=== PATIENT | male | born 1990 | race Caucasian/White ===

== ENCOUNTER 2016-12-04 06:09 | Inpatient (IN) | payer SELFPAY ==
[~2016-12-04] VITALS: Ht 180.3 cm; Wt 67.5 kg
[2016-12-04] VITALS (16 sets, daily range): BP systolic 97–157; BP diastolic 46–75; PULSE 43–93; RESP 16–20; TEMP 97.4–98.8; O2SAT 94–100
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
[2016-12-04] MEDS ORDERED: SODIUM CHLOR 0.9% 1000 ML INJ 1,000 ML IV ONE (06:30)
[2016-12-04 06:55] LABS: AUTOMATED NEUTROPHIL # 12.3 TH/MM3 (1.8-7.7); BASOPHIL # 0.1 TH/MM3 (0-0.2); BASOPHIL % 0.7 % (0.0-2.0); EOSINOPHIL # 0.2 TH/MM3 (0-0.4); EOSINOPHIL % 1.2 % (0.0-4.0); HEMATOCRIT 41.1 % (39.0-51.0); HEMO FLAGS DIFF FINAL; LYMPH % 11.9 % (9.0-44.0); LYMPHOCYTE # 1.8 TH/MM3 (1.0-4.8); MEAN CORPUSCULAR HEMOGLOBIN 32.5 PG (27.0-34.0); MEAN CORPUSCULAR HGB CONC 33.9 % (32.0-36.0); MONO % 5.6 % (0.0-8.0); NEUT % 80.6 % (16.0-70.0); PLATELET COUNT 239 TH/MM3 (150-450); RED BLOOD COUNT 4.28 MIL/MM3 (4.50-5.90); RED CELL DISTRIBUTION WIDTH 13.7 % (11.6-17.2); WHITE BLOOD COUNT 15.2 TH/MM3 (4.0-11.0)
[2016-12-04] MEDS ORDERED: ONDANSETRON HCL 4 MG/2 ML VIAL IV PUSH ONE ×2 (07:00→12:00)
[2016-12-04 07:05] LABS: AMPHETAMINE, URINE NEG (NEG); BARBITURATES, URINE NEG (NEG); COCAINE, URINE NEG (NEG)
[2016-12-04 07:36] LABS: BICARBONATE 25.2 MEQ/L (21.0-32.0)
[2016-12-04 07:37] LABS: POTASSIUM 4.5 MEQ/L (3.5-5.1)
--- NOTE | 2016-12-04 07:37 | PD ---
Physical Exam Date Seen by Provider: Dec 04, 2016 Narrative GENERAL: SKIN: Warm and dry. HEAD: left occipital hematoma, Normocephalic. EYES: Pupils equal and round. No scleral icterus. No injection or drainage. ENT: No nasal bleeding or discharge. Mucous membranes pink and moist. left eac has blood in canal unable to view tm. NECK: Trachea midline. No JVD. CARDIOVASCULAR: Regular rate and rhythm. RESPIRATORY: No accessory muscle use. Clear to auscultation. Breath sounds equal bilaterally. GASTROINTESTINAL: Abdomen soft, non-tender, nondistended. Hepatic and splenic margins not palpable. MUSCULOSKELETAL: Extremities without clubbing, cyanosis, or edema. No obvious deformities. NEUROLOGICAL: SOMNOLENT BUT AROUSABLE. No obvious cranial nerve deficits. Motor grossly within normal limits. NORMAL speech UNCOOPERATIVELY SAID "LEAVE ME ALONE, JUST WANT TO SLEEP". PSYCHIATRIC: UNABLE TO TEST Data Data Last Documented VS Vital Signs Date Time Temp Pulse Resp B/P Pulse Ox O2 Delivery O2 Flow Rate FiO2 12/04/16 07:46 98.3 52 20 157/70 100 Room Air Orders Complete Blood Count With Diff (12/04/16 06:14) Basic Metabolic Panel (Bmp) (12/04/16 06:14) Ct Brain W/O Iv Contrast(Rout) (12/04/16 06:14) Drug Screen, Random Urine (12/04/16 06:14) Alcohol (Ethanol) (12/04/16 06:14) Ct Cerv Spine W/O Contrast (12/04/16 06:14) Sodium Chlor 0.9% 1000 Ml Inj (Ns 1000 M (12/04/16 06:30) Restraints Non-Violent RADHA.Q3H (12/04/16 06:23) Ondansetron Inj (Zofran Inj) (12/04/16 07:00) Etomidate Inj (Amidate Inj) (12/04/16 08:00) Succinylcholine Inj (Quelicin Inj) (12/04/16 08:00) Ng Gastric Tube Insert/Monitor (12/04/16 07:57) Urinary Catheter Insert/Apply (12/04/16 07:57) Lidocaine 2% Inj (Xylocaine 2% Inj) (12/04/16 08:00) Labs Laboratory Tests Test 12/04/16 12/04/16 06:20 06:26 Urine Opiates Screen NEG Urine Barbiturates Screen NEG Urine Amphetamines Screen NEG Urine Benzodiazepines Screen NEG Urine Cocaine Screen NEG Urine Cannabinoids Screen NEG White Blood Count 15.2 TH/MM3 Red Blood Count 4.28 MIL/MM3 Hemoglobin 13.9 GM/DL Hematocrit 41.1 % Mean Corpuscular Volume 96.0 FL Mean Corpuscular Hemoglobin 32.5 PG Mean Corpuscular Hemoglobin 33.9 % Concent Red Cell Distribution Width 13.7 % Platelet Count 239 TH/MM3 Mean Platelet Volume 7.8 FL Neutrophils (%) (Auto) 80.6 % Lymphocytes (%) (Auto) 11.9 % Monocytes (%) (Auto) 5.6 % Eosinophils (%) (Auto) 1.2 % Basophils (%) (Auto) 0.7 % Neutrophils # (Auto) 12.3 TH/MM3 Lymphocytes # (Auto) 1.8 TH/MM3 Monocytes # (Auto) 0.9 TH/MM3 Eosinophils # (Auto) 0.2 TH/MM3 Basophils # (Auto) 0.1 TH/MM3 CBC Comment DIFF FINAL Differential Comment Sodium Level 137 MEQ/L Potassium Level 4.5 MEQ/L Chloride Level 105 MEQ/L Carbon Dioxide Level 25.2 MEQ/L Anion Gap 7 MEQ/L Blood Urea Nitrogen 10 MG/DL Creatinine 0.94 MG/DL Estimat Glomerular Filtration 97 ML/MIN Rate Random Glucose 139 MG/DL Calcium Level 8.2 MG/DL Ethyl Alcohol Level 9 MG/DL [facility] Medical Record Reviewed: Yes Supervised Visit with NGA: No Critical Care Narrative CRITICAL CARE NOTE: With evaluation of the patient, labs, EKG, receipt of radiologic studies, administration of medications, reevaluation the patient and discussion of the patient with the admitting physicians, the total critical care time was [45] minutes. Time to perform other separately billable procedures was not included in the critical care time. Physician Communication Physician Communication DISCUSSED CASE FULLY WITH DR QUINTANA (TEMPORAL FX WITH EPIDURAL BRAIN BLEED, WITH 5MM SHIFT)...CURRENTLY PATIENT IS GUARDING AIRWAY, BUT BEDSIDE PREPARATIONS HAVE BEEN MADE FOR INTUBATION.... OF 819 PATIENT'S VSS, RECALLED DR QUINTANA CURRENTLY AWAITING HIS BEDSIDE EVALUATION, CURRENTLY PUPILS ERRL, PATIENT BREATHING ON HIS OWN ACCORD, HANDLING HIS SECRETIONS. Diagnosis Primary Impression: AMS DUE TO ACUTE EPIDURAL HEMORRHAGE Additional Impression: LEFT TEMPORAL BONE FRACTURE Admitting Information Admitting Physician Requests: Admit Faustino Ramires MD Dec 04, 2016 07:37
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
[2016-12-04] MEDS ORDERED: ETOMIDATE 20 MG/10 ML VIAL IV PUSH ONE (08:00)
[2016-12-04] MEDS ORDERED: LIDOCAINE HCL 2% 100 MG/5 ML SYRINGE IVP ONE (08:00)
[2016-12-04] MEDS ORDERED: SUCCINYLCHOLINE CHLORIDE 200 MG/10 ML VIAL IV PUSH ONE (08:00)
[2016-12-04] MEDS ORDERED: THROMBIN (TOPICAL) 5,000 UNIT VIAL ONE (08:46)
[2016-12-04] MEDS ORDERED: ceFAZolin 2 GM PREMIX 50 ML ONE (08:46)
[2016-12-04] MEDS ORDERED: VANCOMYCIN HCL 1000 MG VIAL ONE (08:46)
[2016-12-04] MEDS ORDERED: BACITRACIN TOP OINT 15 GM TUBE ONE (08:47)
[2016-12-04] MEDS ORDERED: GENTAMICIN SULFATE 80 MG/2 ML VIAL ONE (08:47)
[2016-12-04] MEDS ORDERED: levETIRAcetam 500 MG/5 ML VIAL IV ONE ×2 (08:47→09:38)
[2016-12-04] MEDS ORDERED: FUROSEMIDE 40 MG/4 ML VIAL ONE (08:47)
[2016-12-04] MEDS ORDERED: MANNITOL INJ 50 ML ONE (08:48)
[2016-12-04] MEDS ORDERED: GELFOAM SIZE 100 ONE (08:48)
[2016-12-04] MEDS ORDERED: LIDOCAINE 1%/EPINEPHrine 1:100,000 SOLN 20 ML VIAL ONE ×2 (08:48)
[2016-12-04] MEDS ORDERED: SODIUM CHLOR 0.9% 1000 ML INJ 1,000 ML IV SCH (08:58)
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
[2016-12-04] MEDS ORDERED: MISCELLANEOUS NURSING INFORMATION XX SCH (09:00)
[2016-12-04] MEDS ORDERED: CHLORHEXIDINE GLUCONATE 2 % 1 PACK (2 CLOTHS) TOP PRN (09:00)
[2016-12-04] MEDS ORDERED: DOCUSATE SODIUM 50 MG/SENNA 8.6 MG TAB PO SCH (09:00)
[2016-12-04] MEDS ORDERED: MAGNESIUM HYDROXIDE SUSP 30 ML CUP PO PRN (09:00)
[2016-12-04] MEDS ORDERED: BISACODYL 10 MG SUPP RECTAL PRN ×2 (09:00→10:45)
[2016-12-04] MEDS ORDERED: fentaNYL CITRATE 250 MCG/5 ML AMP ONE (09:06)
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
[2016-12-04] MEDS: PANTOPRAZOLE SODIUM 40 MG VIAL IV SCH (10:00)
[2016-12-04] MEDS ORDERED: MAGNESIUM SULFATE INJ 4 GM in SODIUM CHLORIDE 0.9% INJ 100 ML IV PRN (10:45)
[2016-12-04] MEDS ORDERED: ONDANSETRON HCL 4 MG/2 ML VIAL IV PRN (10:45)
[2016-12-04] MEDS ORDERED: DO NOT ADM ANY ANTICOAGULANT DRUGS PRN (10:45)
[2016-12-04] MEDS ORDERED: ACETAMINOPHEN 325 MG TAB PO PRN (10:45)
[2016-12-04] MEDS ORDERED: CALCIUM GLUCONATE 10% 1 GM/10 ML VIAL IV PRN (10:45)
[2016-12-04] MEDS ORDERED: MORPHINE SULFATE 4 MG/ML INJ IV PUSH PRN ×2 (10:45)
[2016-12-04] MEDS ORDERED: POTASSIUM CHLOR 20 MEQ PREMIX 100 ML IV PRN (10:45)
[2016-12-04] MEDS ORDERED: ACETAMINOPHEN/HYDROcodone 325 MG/10 MG TAB PO PRN ×2 (10:45)
[2016-12-04] MEDS ORDERED: SODIUM CHLORIDE 0.9% FLUSH 5 ML FLUSH IVF PRN (10:45)
--- NOTE | 2016-12-04 10:54 | PD.OP ---
Operative Report Date of Surgery: Dec 04, 2016 Preoperative Diagnosis: traumatic brain injury, epidural hematoma Postoperative Diagnosis: traumatic brain injury, epidural hematoma Procedure: Left temporal parietal craniotomy, evacuation of epidural hematoma Anesthesia: general Surgeon: Gagandeep Yu Sales Account Specialist(s): crispin angela Operation and Findings: DETAILS OF THE SURGICAL PROCEDURE After the inducation of general anesthesia, the patient was endotracheally intubated and mechanically ventilated. A Sales catheter, bilateral DONNA hose and sequential compression devices were placed and kept throughout the procedure. The patient was positioned supine on a 3080 table over a soft mattress. The head was placed on a gel doughnut. All pressure points were carefully padded with egg crate mattress. The eyes were tapped shut after ointment was applied by the anesthesiologist to prevent corneal abrasion. A Leah hugger was placed over the exposed lower body to maintain control of the core body temperature. The left frontotemporal parietal area was shaved, prepped and draped in the usual sterile fashion. A standard inverted question yessica incision was outlined on the left scalp and infiltrated with 1% lidocaine with epinephrine. The skin incision was made with a #10 blade down to the level of the periosteum in the left frontoparietal region and to the temporalis fascia in the temporal region. Franklyn clips were applied to the scalp. Using a Bovie, the temporalis fascia and muscle were incised and a subperiosteal dissection was performed reflecting the scalp flap anteriorly. The scalp was covered with a moist sponge and held in position using fish hooks. The Midas Artis was brought to the field and a bur hole was made in the temporal region using the craniotome attachment. Then, using the footplate attachment, a temporoparietal craniotomy flap was elevated. Upon elevation of the craniotomy flap, a large epidural hematoma was found. The hematoma was evacuated by gentle irrigation and suction, and sent to the lab for histological analysis. The bleeding was controlled using the bipolar psych specialist. Then the incision was irrigated with saline solution. The dural edges were tacked to the bone. The craniotomy flap was then repositioned and secured in place using Striker plates and screws. A 7 millimeter Matthew-Huerta drain was then left in the epidural and subgaleal space and externalized through a separate stab incision. The incision was then closed in layers. 0 Vicryl in interrupted sutures were used to close the temporalis fascia. The galea was closed with interrupted 3- 0 Vicryl. [place] were applied to the skin. The drain was secured with a 3-0 nylon. At the end of the procedure, the sponge, needle and instrument counts were all correct. Estimated blood loss was less than 120-130 cc. No blood transfusion was given. No intraoperative complications occurred. The patient received prophylactic antibiotics. The patient was then transferred to the recovery room in stable condition. Gagandeep Yu MD Dec 04, 2016 10:54
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
[2016-12-04 11:21] LABS: BLOOD GAS BASE EXCESS -2.8 mmol/L (-2-2); BLOOD GAS CARBOXYHEMOGLOBIN 2.4 % (0-4); BLOOD GAS HCO3 22 mmol/L (22-26); BLOOD GAS METHEMOGLOBIN 1.4 % (0-2); BLOOD GAS O2 HGB SATURATION 96 % (90-100); BLOOD GAS OXYGEN CONTENT 17.2 Vol % (12.0-20.0); BLOOD GAS PCO2 38 mmHg (38-42); BLOOD GAS PO2 275 mmHg (61-120); BLOOD GAS TOTAL HGB 12.3 G/DL (12.0-16.0); CRITICAL VALUE NO; DRAW SITE ART LINE; FIO2 50 %; OXYGEN DEVICE VENTILATOR; STAT YES; TEMP CORR TO 98.6; ULNAR PULSE PRESENT; VENT SETTINGS AC/18/550/PEEP5
[2016-12-04] MEDS ORDERED: 3% SALINE INJ 500 ML IV ONE (11:30)
--- NOTE | 2016-12-04 11:30 | RADRPT ---
EXAM DATE/TIME: 12/04/2016 11:16 [facility] COMPARISON: No previous studies available for comparison. INDICATIONS : Endotracheal tube placement. MEDICAL HISTORY : None. SURGICAL HISTORY : None. ENCOUNTER: Initial ACUITY: 1 day PAIN SCORE: Non-responsive. LOCATION: chest FINDINGS: A single view of the chest demonstrates the lungs to be symmetrically aerated without evidence of mas s, infiltrate or effusion. ETT in good position. The cardiomediastinal contours are unremarkable. Osseous structures are intact. CONCLUSION: ETT in good position. Lungs are clear. Walter Barrios MD FACR on December 04, 2016 at 11:28 Board Certified Radiologist. This report was verified electronically.
[2016-12-04] MEDS ORDERED: MORPHINE SULFATE 8 MG/ML INJ ONE (11:38)
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
--- NOTE | 2016-12-04 11:52 | RADRPT ---
EXAM DATE/TIME: 12/04/2016 11:42 [facility] COMPARISON: CT BRAIN W/O CONTRAST, December 04, 2016, 7:23. INDICATIONS : Status post craniotomy. RADIATION DOSE: 54.76 CTDIvol (mGy) MEDICAL HISTORY : None SURGICAL HISTORY : Craniotomy. ENCOUNTER: Initial ACUITY: 1 day PAIN SCALE: Non-responsive LOCATION: cranial TECHNIQUE: Multiple contiguous axial images were obtained of the head. Using automated exposure control and adj ustment of the mA and/or kV according to patient size, radiation dose was kept as low as reasonably a chievable to obtain optimal diagnostic quality images. DICOM format image data is available electro nically for review and comparison. FINDINGS: CEREBRUM: Patient status post drainage of epidural hematoma with good resolution. Minimal cortical hemorrhage is seen on the opposite side. Minimal pneumocephalus is evident. POSTERIOR FOSSA: The cerebellum and brainstem are intact. The 4th ventricle is midline. The cerebellopontine angle i s unremarkable. EXTRACRANIAL: The visualized portion of the orbits is intact. SKULL: Postsurgical changes are evident. CONCLUSION: Significant improvement following evacuation left subdural hematoma. Walter Barrios MD FACR on December 04, 2016 at 11:48 Board Certified Radiologist. This report was verified electronically.
[2016-12-04] MEDS ORDERED: LACTATED RINGER'S 1000 ML INJ 1,000 ML IV ONE (12:00)
[2016-12-04] MEDS ORDERED: PHENYLEPH/NS 1000 MCG/10 ML SYR IV ONE (12:00)
[2016-12-04] MEDS ORDERED: PROPOFOL 200 MG/20 ML AMP IV ONE (12:00)
[2016-12-04] MEDS ORDERED: SODIUM CHLORID 0.9% 500 ML INJ 500 ML IV ONE (12:00)
[2016-12-04] MEDS ORDERED: SODIUM CHLOR 0.9% 250 ML INJ 250 ML IV ONE (12:00)
[2016-12-04] MEDS ORDERED: ePHEDrine/NS 25 MG/5 ML SYR IV ONE (12:00)
[2016-12-04] MEDS ORDERED: NORMOSOL R INJ 1,000 ML IV ONE (12:00)
[2016-12-04] MEDS: fentaNYL DRIP 250 ML IV SCH ×2 (12:11→22:38)
[2016-12-04] MEDS: PROPOFOL 1000 MG/100 ML INJ 100 ML IV SCH ×3 (12:11→22:38)
[2016-12-04] MEDS: levETIRAcetam INJ 500 MG in SODIUM CHLORIDE 0.9% INJ 100 ML IV SCH (12:12)
[2016-12-04] MEDS ORDERED: SODIUM CHLORID 0.9% IV ONE (12:12)
[2016-12-04] MEDS ORDERED: SODIUM CHLORIDE IV ONE (12:12)
[2016-12-04] MEDS ORDERED: SODIUM CHLORIDE 23.4% INJ 188 MEQ in SODIUM CHLOR 0.9% 1000 ML INJ 1,000 ML IV SCH (12:30)
[2016-12-04] MEDS: ceFAZolin 2 GM PREMIX 50 ML IV SCH (16:17)
--- NOTE | 2016-12-04 16:36 | OTSOAPIP ---
PATIENT STATUS POST SURGERY RN REQUESTED TO WAIT UNTIL TOMORROW. Therapist: Alison Dillon OTR/L Signature on file
[2016-12-04] MEDS: NS + KCL 20 MEQ INJ 1,000 ML IV SCH (19:02)
[2016-12-04] MEDS ORDERED: NOREPINEPHRINE-DEXTROSE DRIP 250 ML IV SCH (19:45)
[2016-12-04] MEDS ORDERED: TERBUTALINE INJ 1 MG/ML AMP SQ PRN (19:45)
[2016-12-04] MEDS ORDERED: MIDAZOLAM HCL 2 MG/2 ML VIAL IV ONE (19:45)
[2016-12-04] MEDS: MIDAZOLAM 100 MG/ML INJ 100 ML IV SCH (19:51)
[2016-12-04] MEDS ORDERED: NOREPINEPHRINE 4 MG/4 ML AMP ONE (19:59)
[2016-12-04] MEDS ORDERED: ROCURONIUM INJ 50 MG/5 ML VIAL IV ONE (20:00)
--- NOTE | 2016-12-04 20:28 | PD.PROCEDR ---
Central Line Procedure REASON FOR PROCEDURE Central venous access PROCEDURE PERFORMED Central line placement:LIJ CONSENT Informed consent for procedure was obtained and time out performed. The risks and benefits of the procedure were discussed to include but limited to bleeding , clot formation, infection, and even . ANESTHESIA Local injection of 1% Lidocaine DESCRIPTION OF THE PROCEDURE The patient was placed in supine, mild Trendelenburg position. The area was exposed and cleansed with ChloraPrep, times two. Large sterile drape was used to cover the patient, with the site exposed, under sterile conditions including cap, face mask, sterile gown, and sterile gloves. On single attempt, the introducer needle was inserted with negative pressure in syringe and venous flash was obtained. The guide wire was then advanced without any restriction and the needle was removed. The dilator was used without any complications. Using Seldinger technique the triple lumen abx coated catheter was advanced over the guide wire to a depth of 18 centimeters. The guide wire was removed. All ports were aspirated with dark venous blood return and flushed easily with sterile saline. All ports were capped. Antibiotic disc was placed around central line at puncture site. The central line was secured to the skin with two interrupted 2.0 silk sutures. The area was bandaged with sterile see- through central line bandage. RADIOLOGICAL DATA Ultrasound guidance was used to locate LIJ COMPLICATIONS: No apparent complications ESTIMATED BLOOD LOSS: Less than 1 cc. Kaleb Bello MD Dec 04, 2016 20:28
[2016-12-04] MEDS ORDERED: NOREPINEPHRINE INJ 4 MG in SODIUM CHLOR 0.9% 250 ML INJ 250 ML IV SCH (20:45)
--- NOTE | 2016-12-04 20:53 | RADRPT ---
EXAM DATE/TIME: 12/04/2016 20:31 [facility] COMPARISON: CHEST SINGLE AP, December 04, 2016, 11:16. INDICATIONS : Central line placement, evaluate for pneumothorax MEDICAL HISTORY : None. SURGICAL HISTORY : None. ENCOUNTER: Initial ACUITY: 1 day PAIN SCORE: Non-responsive. LOCATION: Bilateral chest FINDINGS: Interval placement of left internal jugular catheter. There is absent lung markings at the left uppe r lung. No definite pleural reflection seen; the area devoid of lung markings measures approximately 3 cm. Lung markings were seen in the left upper lung on a chest x-ray performed earlier today. ET tube in good position. Gastric tube side port is projected in the stomach. No infiltrates in the alicia ngs. CONCLUSION: Interval placement of left internal jugular catheter with findings suggesting a moderate size left pn eumothorax, but no definitive pleural reflection is seen. The case was discussed with Dr. Bello and a CT thorax will be performed for further evaluation. Pasha Byrd MD on December 04, 2016 at 20:45 Board Certified Radiologist. This report was verified electronically.
--- NOTE | 2016-12-04 21:36 | RADRPT ---
EXAM DATE/TIME: 12/04/2016 21:22 [facility] COMPARISON: No previous studies available for comparison. INDICATIONS : Attempted subclavian line; rule out pneumothorax. RADIATION DOSE: 6.94 CTDIvol (mGy) MEDICAL HISTORY : Non-responsive. SURGICAL HISTORY : Non-responsive. ENCOUNTER: Initial ACUITY: 1 day PAIN SCALE: Non-responsive LOCATION: chest TECHNIQUE: Volumetric scanning of the chest was performed. Using automated exposure control and adjustment of t he mA and/or kV according to patient size, radiation dose was kept as low as reasonably achievable to obtain optimal diagnostic quality images. DICOM format image data is available electronically for r eview and comparison. Follow-up recommendations for incidentally detected pulmonary nodules are based at a minimum on nodul e size and patient risk factors according to Fleischner Society Guidelines. FINDINGS: The examination was performed to evaluate for pneumothorax on the left side. The examination is abno rmal demonstrating a large pneumothorax which extends about the entire left lung. Anteriorly, the pn eumothorax measures in excess of 8 cm in AP dimension. There is mild mediastinal shift towards the r ight. The lungs are clear. Gastric tube tip projects in the stomach. Left subclavian catheter tip at the caval atrial junction. Endotracheal tube in good position. Osseous structures are intact. CONCLUSION: Greater than a centimeter left pneumothorax. There is some evidence of tension with flattening of th e left hemidiaphragm and speed use, shift towards the right. The results were called to Dr. Manuel. Pasha Byrd MD on December 04, 2016 at 21:32 Board Certified Radiologist. This report was verified electronically.
--- NOTE | 2016-12-04 22:10 | PD.PROCEDR ---
Procedure Note Procedure Procedure Procedure: Left pigtail chest tube placement Indication: Moderate Left pneumothorax A time-out was completed verifying correct patient, procedure, site, positioning. The patient's Left upper chest was prepped and draped in a sterile manner. 1% lidocaine was used anesthetize the surrounding skin. A 10-blade scalpel used to make the incision at third intercostal space, mid clavicular line. 18G needle was then introduced without difficulty and into the pleural space and air was withdrawn. Guidewire was placed through the needle and the needle was removed. A 7 Tajik dilator was used, followed by placement of 10 Tajik pigtail catheter over the guidewire using Seldinger technique. Guidewire was removed and pigtail was connected to the Vacutainer. A post- procedure chest x-ray pending at this time Estimated Blood Loss: <1 ml. The patient tolerated the procedure well and there were no immediate complications. Kaleb Bello MD Dec 04, 2016 22:10
--- NOTE | 2016-12-04 22:39 | RADRPT ---
EXAM DATE/TIME: 12/04/2016 22:27 [facility] COMPARISON: CHEST SINGLE AP, December 04, 2016, 20:31. INDICATIONS : Chest tube placement MEDICAL HISTORY : None. SURGICAL HISTORY : None. ENCOUNTER: Initial ACUITY: 1 day PAIN SCORE: Non-responsive. LOCATION: Bilateral chest FINDINGS: Interval placement of left chest catheter with the distal coiled at the upper left chest. There is p artial reexpansion of the left chest with residual 4 mm apical pneumothorax. Endotracheal tube in go od position. Gastric tube is in the stomach. Left internal jugular catheter at the cavoatrial junct ion. The heart is normal size. The lungs are clear. No evidence of mediastinal shift.. CONCLUSION: Interval placement of left chest pigtail catheter with reduction in size of pneumothorax to 4 mm. Pasha Byrd MD on December 04, 2016 at 22:36 Board Certified Radiologist. This report was verified electronically.
[2016-12-05] VITALS (21 sets, daily range): BP systolic 113–132; BP diastolic 47–68; PULSE 63–90; RESP 18–19; TEMP 98–98.8; O2SAT 95–100
[2016-12-05] MEDS: CHLORHEXIDINE 0.12% (ORAL KIT) 15 ML CUP MT SCH ×3 (00:46→20:00)
[2016-12-05] MEDS: NS + KCL 20 MEQ INJ 1,000 ML IV SCH ×3 (00:48→15:33)
[2016-12-05] MEDS: SODIUM CHLORIDE 0.9% FLUSH 5 ML FLUSH IVF SCH ×3 (00:49→21:00)
[2016-12-05] MEDS: DOCUSATE SODIUM 100 MG CAP PO SCH ×3 (00:50→21:13)
[2016-12-05] MEDS: ceFAZolin 2 GM PREMIX 50 ML IV SCH ×2 (00:53→09:55)
[2016-12-05] MEDS: levETIRAcetam INJ 500 MG in SODIUM CHLORIDE 0.9% INJ 100 ML IV SCH ×2 (01:54→13:03)
[2016-12-05 03:54] LABS: BLOOD GAS CARBOXYHEMOGLOBIN 0.9 % (0-4); BLOOD GAS HCO3 24 mmol/L (22-26); BLOOD GAS METHEMOGLOBIN 1.2 % (0-2); BLOOD GAS O2 HGB SATURATION 97 % (90-100); BLOOD GAS OXYGEN CONTENT 14.3 Vol % (12.0-20.0); BLOOD GAS PCO2 42 mmHg (38-42); BLOOD GAS PO2 246 mmHg (61-120); CRITICAL VALUE NO; OXYGEN DEVICE VENTILATOR; TEMP CORR TO 98.6
[2016-12-05 03:55] LABS: DRAW SITE ART LINE; FIO2 50 %; STAT NO
[2016-12-05 04:22] LABS: AUTOMATED NEUTROPHIL # 16.6 TH/MM3 (1.8-7.7); BASOPHIL # 0.1 TH/MM3 (0-0.2); BASOPHIL % 0.4 % (0.0-2.0); EOSINOPHIL % 0.1 % (0.0-4.0); HEMATOCRIT 30.5 % (39.0-51.0); HEMO FLAGS DIFF FINAL; LYMPH % 5.1 % (9.0-44.0); MEAN CELL VOLUME 95.1 FL (80.0-100.0); MEAN CORPUSCULAR HEMOGLOBIN 31.3 PG (27.0-34.0); MEAN CORPUSCULAR HGB CONC 32.9 % (32.0-36.0); MONO % 7.9 % (0.0-8.0); NEUT % 86.5 % (16.0-70.0); PLATELET COUNT 212 TH/MM3 (150-450); RED BLOOD COUNT 3.21 MIL/MM3 (4.50-5.90); RED CELL DISTRIBUTION WIDTH 13.9 % (11.6-17.2); WHITE BLOOD COUNT 19.2 TH/MM3 (4.0-11.0)
[2016-12-05] MEDS: PROPOFOL 1000 MG/100 ML INJ 100 ML IV SCH (04:36)
[2016-12-05] MEDS: MIDAZOLAM 100 MG/ML INJ 100 ML IV SCH (04:36)
[2016-12-05] MEDS: CHLORHEXIDINE GLUCONATE 2 % 1 PACK (2 CLOTHS) TOP SCH (04:36)
[2016-12-05 04:42] LABS: BICARBONATE 27.4 MEQ/L (21.0-32.0); POTASSIUM 4.2 MEQ/L (3.5-5.1)
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
[2016-12-05] MEDS: PIPERACIL-TAZO 4.5 GM PREMIX 100 ML IV SCH ×2 (04:55→10:59)
--- NOTE | 2016-12-05 05:53 | RADRPT ---
EXAM DATE/TIME: 12/05/2016 04:03 [facility] COMPARISON: CHEST SINGLE AP, December 04, 2016, 22:27. INDICATIONS : Respiratory disease. MEDICAL HISTORY : None. SURGICAL HISTORY : None. ENCOUNTER: Subsequent ACUITY: 2 days PAIN SCORE: Non-responsive. LOCATION: Bilateral chest FINDINGS: The cardiac silhouette is normal in transverse diameter. The lungs are free of acute parenchymal opac ity. No effusions are identified. A stable small left pneumothorax is present with a left chest tube in place. Support lines and tubes are in satisfactory position. CONCLUSION: 1. Stable small left apical pneumothorax without tension Garrett Capone MD on December 05, 2016 at 5:50 Board Certified Radiologist. This report was verified electronically.
[2016-12-05] MEDS: PANTOPRAZOLE SOD 40 MG DELAYED RELEASE TAB PO SCH (08:14)
[2016-12-05] MEDS ORDERED: PANTOPRAZOLE SODIUM 40 MG VIAL IVP SCH (09:00)
[2016-12-05] MEDS: PANTOPRAZOLE SODIUM 40 MG VIAL IV SCH (09:55)
--- NOTE | 2016-12-05 12:24 | HHI.NSPN ---
(Tara De La Rosa) Note Status Status: Progress Note (Tara De La Rosa) Interval History Interval History 12/05: POD 1 s/p craniotomy for evacuation of epidural hematoma, placement of ICP monitor. Currently sedated, becomes agitated off sedation. ICPs currently low. (Tara De La Rosa) Labs, Micro, & Vital Signs Results Date Time Temp Pulse Resp B/P Pulse Ox O2 Delivery O2 Flow Rate FiO2 12/05/16 11:30 100 30 12/05/16 10:00 71 12/05/16 08:00 40 12/05/16 08:00 73 12/05/16 08:00 98.0 72 18 129/56 100 Automatic Cuff 12/05/16 07:38 100 40 12/05/16 07:00 100 Mechanical Ventilator 40 12/05/16 06:00 86 12/05/16 04:23 100 50 12/05/16 04:00 98.4 79 18 118/56 100 12/05/16 04:00 40 12/05/16 04:00 86 12/05/16 03:17 100 50 12/05/16 02:00 86 12/05/16 00:18 100 40 12/05/16 00:00 81 12/05/16 00:00 40 12/05/16 00:00 98.3 81 18 131/60 100 12/04/16 22:00 93 12/04/16 21:48 100 40 12/04/16 21:00 100 100 12/04/16 20:00 40 12/04/16 20:00 87 12/04/16 20:00 98.8 87 18 97/46 100 12/04/16 19:00 100 Mechanical Ventilator 40 12/04/16 18:00 77 12/04/16 16:00 97.7 62 18 97/54 100 12/04/16 16:00 40 12/04/16 16:00 62 12/04/16 15:18 99 40 12/04/16 14:00 68 12/04/16 12:19 94 35 12/05/16 07:00 Intake Total 4899 ml Output Total 3592 ml Balance 1307 ml Constitutional Vital Signs Date Time Temp Pulse Resp B/P Pulse Ox O2 Delivery O2 Flow Rate FiO2 12/05/16 11:30 100 30 12/05/16 10:00 71 12/05/16 08:00 40 12/05/16 08:00 73 12/05/16 08:00 98.0 72 18 129/56 100 Automatic Cuff 12/05/16 07:38 100 40 12/05/16 07:00 100 Mechanical Ventilator 40 12/05/16 06:00 86 12/05/16 04:23 100 50 12/05/16 04:00 98.4 79 18 118/56 100 12/05/16 04:00 40 12/05/16 04:00 86 12/05/16 03:17 100 50 12/05/16 02:00 86 12/05/16 00:18 100 40 12/05/16 00:00 81 12/05/16 00:00 40 12/05/16 00:00 98.3 81 18 131/60 100 12/04/16 22:00 93 12/04/16 21:48 100 40 12/04/16 21:00 100 100 12/04/16 20:00 40 12/04/16 20:00 87 12/04/16 20:00 98.8 87 18 97/46 100 12/04/16 19:00 100 Mechanical Ventilator 40 12/04/16 18:00 77 12/04/16 16:00 97.7 62 18 97/54 100 12/04/16 16:00 40 12/04/16 16:00 62 12/04/16 15:18 99 40 12/04/16 14:00 68 12/04/16 12:19 94 35 12/05/16 07:00 Intake Total 4899 ml Output Total 3592 ml Balance 1307 ml (Tara De La Rosa) Review of Systems/Exam Exam patient is currently intubated and sedated. nursing reports off sedation opens eyes, moves all four extremities intermittently. ICP monitor in place, = 3. Surgical wound with clean dry dressing in place. JAMARCUS drains x [address] with minimal serosanguineous drainage. Cranial nerve examination: pupils to be equal, round and reactive to light. Motor: not following for testing, reports to move x 4 spontaneously off sedation (Tara De La Rosa) Medications Current Medications Current Medications Medications (Trade) Dose Ordered Sig/Torie Route PRN Reason Start Time Stop Time Status Last Admin Dose Admin Pantoprazole Sodium (Protonix Inj) 40 mg DAILY IV 12/04/16 10:00 12/05/16 09:55 Ondansetron HCl (Zofran Inj) 4 mg Q6H PRN IV NAUSEA OR VOMITING 12/04/16 09:00 Miscellaneous Information 1 Q361D XX 12/04/16 09:00 12/05/16 00:44 Chlorhexidine Gluconate (Chlorhexidine 2% Cloth) 3 pack Taper DAILY@04 TOP 12/05/16 04:00 12/01/17 03:59 12/05/16 04:36 Chlorhexidine Gluconate (Chlorhexidine 2% Cloth) 3 pack UNSCH PRN TOP HYGIENIC CARE 12/04/16 09:00 Magnesium Hydroxide 30 ml 30 ml Q12H PRN PO MILD - MODERATE CONSTIPATION 12/04/16 09:00 Potassium Chloride/Sodium Chloride (NS + KCl 20 Meq Inj) 1,000 ml @ 100 mls/hr Q10H IV 12/04/16 10:43 12/05/16 00:48 IV Flush (NS Flush) 2 ml UNSCH PRN IVF FLUSH AFTER USING IV ACCESS 12/04/16 10:45 IV Flush 2 ml 2 ml BID IVF 12/04/16 21:00 12/05/16 09:00 Levetriacetam/ Sodium Chloride (Keppra Inj/NS Inj) 105 ml @ 400 mls/hr Q12H IV 12/04/16 13:00 12/05/16 01:54 Bisacodyl (Dulcolax Supp) 10 mg DAILY PRN RECTAL CONSTIPATION 12/04/16 10:45 Docusate Sodium (Colace) 100 mg BID PO 12/04/16 21:00 12/05/16 09:55 Pantoprazole Sodium (Protonix) 40 mg DAILY PO 12/05/16 09:00 Calcium Gluconate 1 gm 1 gm UNSCH PRN IV SEE LABEL COMMENTS 12/04/16 10:45 Potassium Chloride 100 ml @ 50 mls/hr UNSCH PRN IV POTASSIUM LESS THAN 4 12/04/16 10:45 Magnesium Sulfate/ Sodium Chloride (Magnesium Sulfate Inj/NS Inj) 108 ml @ 108 mls/hr UNSCH PRN IV MAGNESIUM LESS THAN 2 12/04/16 10:45 Acetaminophen/ Hydrocodone Bitart ([place] 10-325 Mg) 1 tab Q4H PRN PO PAIN SCALE 1 TO 5 12/04/16 10:45 Acetaminophen/ Hydrocodone Bitart ([place] 10-325 Mg) 2 tab Q4H PRN PO PAIN SCALE 6 TO 10 12/04/16 10:45 Morphine Sulfate (Morphine Inj) 2 mg Q2H PRN IV PUSH PAIN SCALE 1 TO 6 12/04/16 10:45 Morphine Sulfate (Morphine Inj) 4 mg Q2H PRN IV PUSH PAIN SCALE 7 TO 10 12/04/16 10:45 Acetaminophen (Tylenol) 650 mg Q4H PRN PO TEMPERATURE > 101.5 F 12/04/16 10:45 Chlorhexidine Gluconate 15 ml 15 ml BID@08,20 MT 12/04/16 20:00 12/05/16 08:00 Propofol (Diprivan 1000 Mg/100ml Inj) 100 ml @ 0 mls/hr TITRATE IV 12/04/16 11:30 12/05/16 04:36 Fentanyl Citrate 100 mcg 100 mcg Q1H PRN SLOW IVP ICP > 20 12/04/16 11:30 Fentanyl Citrate 250 ml @ 0 mls/hr TITRATE IV 12/04/16 11:30 12/04/16 22:38 Sodium Chloride 187 meq/Sodium Chloride 500 ml @ 20 mls/hr ONCE ONCE IV 12/04/16 12:12 12/05/16 13:14 Sodium Chloride 188 meq/Sodium Chloride 1,047 ml @ 30 mls/hr Q24H IV 12/04/16 12:30 12/04/16 14:23 Midazolam HCl (Versed 100 Mg/ ml Inj) 100 ml @ 0 mls/hr TITRATE IV 12/04/16 19:45 12/05/16 04:36 Terbutaline Sulfate 1 mg 1 mg UNSCH PRN SQ For Extravasation 12/04/16 19:45 Norepinephrine Bitartrate 4 mg/ Sodium Chloride 254 ml @ 0 mls/hr TITRATE IV 12/04/16 20:45 Piperacillin Sod/ Tazobactam Sod (Zosyn 4.5 Gm Premix) 100 ml @ 200 mls/hr Q6H IV 12/05/16 05:00 12/05/16 10:59 (Tara De La Rosa) Medical Decision Making MDM Remarks 26 y/o male s/p craniotomy for evacuation of epidural hematoma, placement of ICP monitor 12/04/16, ICP monitor dc'ed 12/05 (Tara De La Rosa) Plan Plan Remarks started weaning off sedated, also wean vent to extubated as tolerated cont neuro checks cont nonchemical dvt prophylaxis (Tara De La Rosa) Attending Statement The exam, history, and the medical decision-making described in the above note were completed with the assistance of the mid-level provider. I reviewed and agree with the findings presented. I attest that I had a [id number] encounter with the patient on the same day, and personally performed and documented my assessment and findings in the medical record. (Gagandeep Yu MD) Tara De La Rosa Dec 05, 2016 12:24 Gagandeep Yu MD Dec 08, 2016 18:57
--- NOTE | 2016-12-05 12:56 | HHI.CCPN ---
Subjective Brief History EDH with shift-presented with [facility] OR for evacuation -POD#1 24 Hour Review/Hospital Course 12/05 -Agitated overnight sedated with propofol/fentanyl icp/cpp in good level-low dose levophed moving all 4 extremities-not purposeful yet Objective Vital Signs Date Time Temp Pulse Resp B/P Pulse Ox O2 Delivery O2 Flow Rate FiO2 12/05/16 11:30 100 30 12/05/16 10:00 71 12/05/16 08:00 98.0 18 129/56 Automatic Cuff 12/05/16 07:00 Mechanical Ventilator Intake and Output 12/04/16 12/04/16 12/04/16 07:59 15:59 23:59 Intake Total 2755 ml 1069 ml Output Total 2000 ml 410 ml Balance 755 ml 659 ml Result Diagram: 12/05/16 0400 12/05/16 0400 Other Results Laboratory Tests Test 12/05/16 03:35 Blood Gas Puncture Site ART LINE Blood Gas Patient Temperature 98.6 Blood Gas HCO3 24 mmol/L (22-26) Blood Gas Base Excess 0.0 mmol/L (-2-2) Blood Gas Oxygen Saturation 97 % (90-100) Arterial Blood pH 7.39 (7.380-7.420) Arterial Blood Partial 42 mmHg (38-42) Pressure CO2 Arterial Blood Partial 246 mmHg Pressure O2 (61-120) Arterial Blood Oxygen Content 14.3 Vol % (12.0-20.0) Arterial Blood 0.9 % (0-4) Carboxyhemoglobin Arterial Blood Methemoglobin 1.2 % (0-2) Blood Gas Hemoglobin 10.0 G/DL (12.0-16.0) Oxygen Delivery Device VENTILATOR Blood Gas Ventilator Setting COMMENT Blood Gas Inspired Oxygen 50 % Imaging Last 24 hours Impressions Chest X-Ray 12/05/16 0500 Signed Impressions: Service Date/Time: Monday, December 05, 2016 04:03 - CONCLUSION: 1. Stable small left apical pneumothorax without tension Garrett Capone MD Exam [employer] [facility] Hemodynamic/Cardiac levophed Pulmonary/Respiratory clear B/L Abdomen/GI Nutrition soft Renal/I&O adequat Urinary Catheter Assessment Urinary Catheter: Yes Sales insert reason: Measure Accurate Output Vascular Central Line Catheter Vascular Central Line Catheter: Yes Assessment and Plan Plan SBT/SBA consider precedex for wean keep CPP >60 mmHg achieve euvolemia to wean off levophed continue neuro protection keppra seizure prophylaxis start trophic tube feeds single system trauma-hold chemical prophylaxis until stable CT Diamond Flood MD Dec 05, 2016 12:56
[2016-12-05] MEDS: fentaNYL DRIP 250 ML IV SCH (13:36)
[2016-12-05] MEDS ORDERED: DEXMEDETOMIDINE INJ 50 ML IV SCH (14:30)
[2016-12-05] MEDS: QUEtiapine FUMARATE 100 MG TAB PO SCH ×2 (15:09→21:13)
[2016-12-05] MEDS: cloNIDine HCL 0.3 MG TAB PO SCH ×2 (15:09→22:00)
[2016-12-05] MEDS: oxyCODONE HCL ORAL CONC 20 MG/ML SYRINGE PO SCH ×3 (15:09→23:00)
[2016-12-05] MEDS: DEXMEDETOMIDINE 200 MCG in NS 50 ML IV SCH ×2 (15:34→17:09)
--- NOTE | 2016-12-05 16:21 | OTSOAPIP ---
TIME SESSION COMPLETED: 1200 TREATMENT TIME: 0 MINS. CHART REVIEWED. INTERDISCIPLINARY COMMUNICATION: NURSING REQUESTED TO HOLD TREATMENT TODAY DUE TO PATIENT BEING AGITATED. PLAN: WILL SEE PATIENT NEXT TREATMENT DAY Therapist: GRACE BATES/Alek Signature on file
[2016-12-05 16:33] LABS: AUTOMATED NEUTROPHIL # 11.4 TH/MM3 (1.8-7.7); BASOPHIL % 0.1 % (0.0-2.0); EOSINOPHIL % 0.2 % (0.0-4.0); HEMATOCRIT 31.7 % (39.0-51.0); HEMO FLAGS DIFF FINAL; LYMPH % 9.6 % (9.0-44.0); LYMPHOCYTE # 1.3 TH/MM3 (1.0-4.8); MEAN CORPUSCULAR HEMOGLOBIN 32.6 PG (27.0-34.0); MEAN CORPUSCULAR HGB CONC 33.9 % (32.0-36.0); MONO % 7.7 % (0.0-8.0); NEUT % 82.4 % (16.0-70.0); PLATELET COUNT 188 TH/MM3 (150-450); RED CELL DISTRIBUTION WIDTH 14.2 % (11.6-17.2); WHITE BLOOD COUNT 13.8 TH/MM3 (4.0-11.0)
[2016-12-06] VITALS (14 sets, daily range): BP systolic 118–140; BP diastolic 64–80; PULSE 48–80; RESP 10–20; TEMP 97.6–98.7; O2SAT 95–100
[2016-12-06] MEDS: levETIRAcetam INJ 500 MG in SODIUM CHLORIDE 0.9% INJ 100 ML IV SCH ×2 (00:57→13:18)
[2016-12-06] MEDS: HALOPERIDOL LACTATE 5 MG/ML AMP IV PUSH PRN (00:58)
[2016-12-06] MEDS: NS + KCL 20 MEQ INJ 1,000 ML IV SCH ×3 (01:04→22:00)
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
[2016-12-06] MEDS: oxyCODONE HCL ORAL CONC 20 MG/ML SYRINGE PO SCH ×5 (03:00→19:00)
[2016-12-06] MEDS: CHLORHEXIDINE GLUCONATE 2 % 1 PACK (2 CLOTHS) TOP SCH (04:00)
[2016-12-06 04:40] LABS: BLOOD GAS BASE EXCESS 2.2 mmol/L (-2-2); BLOOD GAS HCO3 27 mmol/L (22-26); BLOOD GAS O2 HGB SATURATION 97 % (90-100); BLOOD GAS PCO2 45 mmHg (38-42); BLOOD GAS PO2 149 mmHg (61-120); CRITICAL VALUE NO; LITER FLOW 3 L/M; OXYGEN DEVICE NASAL CANNULA; TEMP CORR TO 98.6
[2016-12-06 04:41] LABS: DRAW SITE ART LINE; STAT NO
[2016-12-06] MEDS ORDERED: QUEtiapine FUMARATE 100 MG TAB PO SCH (06:00)
[2016-12-06] MEDS: cloNIDine HCL 0.3 MG TAB PO SCH ×3 (06:00→22:00)
[2016-12-06] MEDS: QUEtiapine FUMARATE 25 MG TAB PO SCH ×3 (06:00→22:00)
--- NOTE | 2016-12-06 06:07 | RADRPT ---
EXAM DATE/TIME: 12/06/2016 05:29 [facility] COMPARISON: CHEST SINGLE AP, December 05, 2016, 4:03. INDICATIONS : Follow up respiratory status. MEDICAL HISTORY : None. SURGICAL HISTORY : None. ENCOUNTER: Subsequent ACUITY: 3 days PAIN SCORE: Non-responsive. LOCATION: Bilateral chest FINDINGS: The cardiac silhouette is enlarged in transverse diameter. The lungs are free of acute parenchymal op acity. No effusions are identified. A left chest tube is in place. There is no evidence of pneumothor ax. A left sided internal jugular vein catheter is in place without pneumothorax with its tip in the superior vena cava. CONCLUSION: 1. There is no evidence of pneumothorax. Garrett Capone MD on December 06, 2016 at 6:05 Board Certified Radiologist. This report was verified electronically.
[2016-12-06 06:14] LABS: AUTOMATED NEUTROPHIL # 12.1 TH/MM3 (1.8-7.7); BASOPHIL % 0.1 % (0.0-2.0); EOSINOPHIL % 0.2 % (0.0-4.0); HEMATOCRIT 31.8 % (39.0-51.0); HEMO FLAGS DIFF FINAL; LYMPH % 7.3 % (9.0-44.0); MEAN CELL VOLUME 95.5 FL (80.0-100.0); MEAN CORPUSCULAR HEMOGLOBIN 32.4 PG (27.0-34.0); MONO % 6.3 % (0.0-8.0); NEUT % 86.1 % (16.0-70.0); PLATELET COUNT 168 TH/MM3 (150-450); RED BLOOD COUNT 3.33 MIL/MM3 (4.50-5.90); RED CELL DISTRIBUTION WIDTH 13.8 % (11.6-17.2)
[2016-12-06 07:48] LABS: BICARBONATE 27.2 MEQ/L (21.0-32.0)
[2016-12-06] MEDS: PANTOPRAZOLE SOD 40 MG DELAYED RELEASE TAB PO SCH (08:42)
[2016-12-06] MEDS: SODIUM CHLORIDE 0.9% FLUSH 5 ML FLUSH IVF SCH ×2 (08:42→20:37)
[2016-12-06] MEDS: DOCUSATE SODIUM 100 MG CAP PO SCH ×2 (08:42→20:37)
[2016-12-06] MEDS: ONDANSETRON HCL 4 MG/2 ML VIAL IV PRN (09:45)
[2016-12-06] MEDS: NICOTINE 21 MG/24 HR PATCH T-DERMAL SCH (10:00)
--- NOTE | 2016-12-06 11:07 | HHI.NSPN ---
(Tara De La Rosa) Note Status Status: Progress Note (Tara De La Rosa) Interval History Interval History 12/05: POD 1 s/p craniotomy for evacuation of epidural hematoma, placement of ICP monitor. Currently sedated, becomes agitated off sedation. ICPs currently low. 12/05: POD 2, extubated, drowsy but opens eyes and follows some commands (Tara De La Rosa) Labs, Micro, & Vital Signs Results Date Time Temp Pulse Resp B/P Pulse Ox O2 Delivery O2 Flow Rate FiO2 12/06/16 10:00 58 12/06/16 08:00 52 12/06/16 08:00 98.6 53 12 118/74 100 Arterial Line 12/06/16 07:22 100 Nasal Cannula 1.50 12/06/16 07:00 100 Nasal Cannula 3.00 12/06/16 06:00 48 12/06/16 04:00 64 12/06/16 04:00 98.7 64 14 140/68 100 12/06/16 02:00 56 12/06/16 00:00 78 12/06/16 00:00 98.0 70 15 139/64 100 12/05/16 22:13 20 12/05/16 22:00 63 12/05/16 22:00 100 Nasal Cannula 4.00 12/05/16 21:35 95 Nasal Cannula 2 28 12/05/16 21:35 95 Nasal Cannula 4.00 12/05/16 21:07 100 30 12/05/16 20:56 100 30 12/05/16 20:00 98.8 90 18 132/68 100 12/05/16 20:00 90 12/05/16 20:00 40 12/05/16 19:00 100 Mechanical Ventilator 40 12/05/16 18:00 66 12/05/16 16:00 98.6 69 18 117/67 100 12/05/16 16:00 72 12/05/16 16:00 40 12/05/16 15:36 100 30 12/05/16 14:00 67 12/05/16 12:00 70 12/05/16 12:00 98.8 70 19 113/47 100 12/05/16 12:00 40 12/05/16 11:30 100 30 12/06/16 07:00 Intake Total 2629 ml Output Total 1995.0 ml Balance 634.0 ml Constitutional Vital Signs Date Time Temp Pulse Resp B/P Pulse Ox O2 Delivery O2 Flow Rate FiO2 12/06/16 10:00 58 12/06/16 08:00 52 12/06/16 08:00 98.6 53 12 118/74 100 Arterial Line 12/06/16 07:22 100 Nasal Cannula 1.50 12/06/16 07:00 100 Nasal Cannula 3.00 12/06/16 06:00 48 12/06/16 04:00 64 12/06/16 04:00 98.7 64 14 140/68 100 12/06/16 02:00 56 12/06/16 00:00 78 12/06/16 00:00 98.0 70 15 139/64 100 12/05/16 22:13 20 12/05/16 22:00 63 12/05/16 22:00 100 Nasal Cannula 4.00 12/05/16 21:35 95 Nasal Cannula 2 28 12/05/16 21:35 95 Nasal Cannula 4.00 12/05/16 21:07 100 30 12/05/16 20:56 100 30 12/05/16 20:00 98.8 90 18 132/68 100 12/05/16 20:00 90 12/05/16 20:00 40 12/05/16 19:00 100 Mechanical Ventilator 40 12/05/16 18:00 66 12/05/16 16:00 98.6 69 18 117/67 100 12/05/16 16:00 72 12/05/16 16:00 40 12/05/16 15:36 100 30 12/05/16 14:00 67 12/05/16 12:00 70 12/05/16 12:00 98.8 70 19 113/47 100 12/05/16 12:00 40 12/05/16 11:30 100 30 12/06/16 07:00 Intake Total 2629 ml Output Total 1995.0 ml Balance 634.0 ml (Tara De La Rosa) Review of Systems/Exam Exam Drowsy but open eyes, mumbling. Follows few simple commands. Surgical wound with clean dry dressing in place. JAMARCUS drains x [address] with minimal drainage. Cranial nerve examination: pupils to be equal, round and reactive to light. Facial motor symmetric at rest Motor: grossly moved x 4 extremities to command Neck: soft, supple (Tara De La Rosa) Medications Current Medications Current Medications Medications (Trade) Dose Ordered Sig/Torie Route PRN Reason Start Time Stop Time Status Last Admin Dose Admin Ondansetron HCl (Zofran Inj) 4 mg Q6H PRN IV NAUSEA OR VOMITING 12/04/16 09:00 12/06/16 09:45 Miscellaneous Information 1 Q361D XX 12/04/16 09:00 12/05/16 00:44 Chlorhexidine Gluconate (Chlorhexidine 2% Cloth) 3 pack Taper DAILY@04 TOP 12/05/16 04:00 12/01/17 03:59 12/05/16 04:36 Chlorhexidine Gluconate (Chlorhexidine 2% Cloth) 3 pack UNSCH PRN [facility] 12/04/16 09:00 Magnesium Hydroxide 30 ml 30 ml Q12H PRN PO MILD - MODERATE CONSTIPATION 12/04/16 09:00 Potassium Chloride/Sodium Chloride (NS + KCl 20 Meq Inj) 1,000 ml @ 100 mls/hr Q10H IV 12/04/16 10:43 12/06/16 01:04 IV Flush (NS Flush) 2 ml UNSCH PRN IVF FLUSH AFTER USING IV ACCESS 12/04/16 10:45 IV Flush 2 ml 2 ml BID IVF 12/04/16 21:00 12/06/16 08:42 Levetriacetam/ Sodium Chloride (Keppra Inj/NS Inj) 105 ml @ 400 mls/hr Q12H IV 12/04/16 13:00 12/06/16 00:57 Bisacodyl (Dulcolax Supp) 10 mg DAILY PRN RECTAL CONSTIPATION 12/04/16 10:45 Docusate Sodium (Colace) 100 mg BID PO 12/04/16 21:00 12/06/16 08:42 Pantoprazole Sodium (Protonix) 40 mg DAILY PO 12/05/16 09:00 12/06/16 08:42 Calcium Gluconate 1 gm 1 gm UNSCH PRN IV SEE LABEL COMMENTS 12/04/16 10:45 Potassium Chloride 100 ml @ 50 mls/hr UNSCH PRN IV POTASSIUM LESS THAN 4 12/04/16 10:45 Magnesium Sulfate/ Sodium Chloride (Magnesium Sulfate Inj/NS Inj) 108 ml @ 108 mls/hr UNSCH PRN IV MAGNESIUM LESS THAN 2 12/04/16 10:45 Morphine Sulfate (Morphine Inj) 2 mg Q2H PRN IV PUSH PAIN SCALE 1 TO 6 12/04/16 10:45 Morphine Sulfate (Morphine Inj) 4 mg Q2H PRN IV PUSH PAIN SCALE 7 TO 10 12/04/16 10:45 Acetaminophen (Tylenol) 650 mg Q4H PRN PO TEMPERATURE > 101.5 F 12/04/16 10:45 Clonidine (Catapres) 0.3 mg Q8HR PO 12/05/16 15:00 12/06/16 06:00 Haloperidol Lactate (Haldol Inj) 5 mg Q4H PRN IV PUSH agitation 12/05/16 14:30 12/06/16 00:58 Oxycodone HCl 10 mg 10 mg Q4H PO 12/05/16 15:00 12/06/16 04:00 Dexmedetomidine HCl/Sodium Chloride (Precedex Inj/NS Inj) 52 ml @ 0 mls/hr TITRATE IV 12/05/16 15:15 12/05/16 17:09 Quetiapine Fumarate (SEROquel) 50 mg Q8HR PO 12/06/16 06:00 12/06/16 06:00 Nicotine (Habitrol 21 Mg Patch.24 Hr) 1 patch DAILY T-DERMAL 12/06/16 09:30 12/06/16 10:00 Miscellaneous Information 1 HS T-DERMAL 12/06/16 21:00 (Tara De La Rosa) Medical Decision Making MDM Remarks 26 y/o male s/p craniotomy for evacuation of epidural hematoma, placement of ICP monitor 12/04/16, ICP monitor dc'ed 12/05 (Tara De La Rosa) Plan Plan Remarks cont supportive care, dc JAMARCUS drains cont neuro checks in ISC cont nonchemical dvt prophylaxis start therapy (Tara De La Rosa) Attending Statement The exam, history, and the medical decision-making described in the above note were completed with the assistance of the mid-level provider. I reviewed and agree with the findings presented. I attest that I had a [id number] encounter with the patient on the same day, and personally performed and documented my assessment and findings in the medical record. (Gagandeep Yu MD) Tara De La Rosa Dec 06, 2016 11:07 Gagandeep Yu MD Dec 08, 2016 19:14
--- NOTE | 2016-12-06 17:31 | HHI.CCPN ---
Subjective Brief History EDH with shift-presented with [facility] 11 OR for evacuation -POD#1 24 Hour Review/Hospital Course 12/05 -Agitated overnight sedated with propofol/fentanyl icp/cpp in good level-low dose levophed moving all 4 extremities-not purposeful yet 12/06 extubated last night [facility] 15 HD normal moving all 4 extremities Objective Vital Signs Date Time Temp Pulse Resp B/P Pulse Ox O2 Delivery O2 Flow Rate FiO2 12/06/16 16:00 67 12/06/16 16:00 98.3 16 121/80 97 12/06/16 11:21 21 12/06/16 07:22 Nasal Cannula 1.50 Intake and Output 12/05/16 12/05/16 12/06/16 08:00 16:00 00:00 Intake Total 1075 ml 807 ml 1051 ml Output Total 1182 ml 970 ml 565.0 ml Balance -107 ml -163 ml 486.0 ml Result Diagram: 12/06/16 0558 12/06/16 0558 Other Results Laboratory Tests Test 12/06/16 04:27 Blood Gas Puncture Site ART LINE Blood Gas Patient Temperature 98.6 Blood Gas HCO3 27 mmol/L (22-26) Blood Gas Base Excess 2.2 mmol/L (-2-2) Blood Gas Oxygen Saturation 97 % (90-100) Arterial Blood pH 7.39 (7.380-7.420) Arterial Blood Partial 45 mmHg (38-42) Pressure CO2 Arterial Blood Partial 149 mmHg Pressure O2 (61-120) Arterial Blood Oxygen Content 14.0 Vol % (12.0-20.0) Arterial Blood 1.0 % (0-4) Carboxyhemoglobin Arterial Blood Methemoglobin 1.0 % (0-2) Blood Gas Hemoglobin 10.0 G/DL (12.0-16.0) Oxygen Delivery Device NASAL CANNULA Blood Gas Liter Flow 3 L/M Imaging Last 24 hours Impressions Chest X-Ray 12/06/16 0600 Signed Impressions: Service Date/Time: Tuesday, December 06, 2016 05:29 - CONCLUSION: 1. There is no evidence of pneumothorax. Garrett Capone MD Exam GRADUATE FELLOW [facility] 15 Hemodynamic/Cardiac stable Pulmonary/Respiratory clear b/l Abdomen/GI Nutrition soft Renal/I&O uo adequat Urinary Catheter Assessment Urinary Catheter: Yes Vascular Central Line Catheter Vascular Central Line Catheter: No Assessment and Plan Plan stable postop [facility] 15 PT/OT/cognitive passed swallow -diet ordered anticipate transfer floor 24 hrs Diamond Flood MD Dec 06, 2016 17:31
--- NOTE | 2016-12-06 17:44 | RADRPT ---
EXAM DATE/TIME: 12/06/2016 17:39 [facility] COMPARISON: CHEST SINGLE AP, December 06, 2016, 5:29. INDICATIONS : Chest tube placed on water seal past 4 hours. MEDICAL HISTORY : None. SURGICAL HISTORY : None. ENCOUNTER: Subsequent ACUITY: 3 days PAIN SCORE: Non-responsive. LOCATION: Left chest FINDINGS: Left-sided central line tip in superior vena cava. Small caliber left chest tube without pneumothorax . Mild basilar airspace disease. CONCLUSION: 1. Left chest tube present without pneumothorax. Left central line unchanged. Vadim Meehan MD on December 06, 2016 at 17:41 Board Certified Radiologist. This report was verified electronically.
[2016-12-06] MEDS: REMOVE OLD NICODERM (NICOTINE) PATCH T-DERMAL SCH (21:00)
[2016-12-07] VITALS (9 sets, daily range): BP systolic 117–153; BP diastolic 73–95; PULSE 49–62; RESP 12–20; TEMP 97.5–98.4; O2SAT 96–100
[2016-12-07] MEDS: oxyCODONE HCL ORAL CONC 20 MG/ML SYRINGE PO SCH ×6 (00:04→17:38)
[2016-12-07] MEDS: levETIRAcetam INJ 500 MG in SODIUM CHLORIDE 0.9% INJ 100 ML IV SCH ×2 (01:09→13:21)
[2016-12-07] MEDS: CHLORHEXIDINE GLUCONATE 2 % 1 PACK (2 CLOTHS) TOP SCH (04:00)
--- NOTE | 2016-12-07 04:26 | RADRPT ---
EXAM DATE/TIME: 12/07/2016 04:16 [facility] COMPARISON: CHEST SINGLE AP, December 06, 2016, 17:39. INDICATIONS : Evaluate left side chest tube MEDICAL HISTORY : None. SURGICAL HISTORY : None. ENCOUNTER: Subsequent ACUITY: 4 - 6 days PAIN SCORE: 8/10 LOCATION: Bilateral chest FINDINGS: Left jugular line tip overlies the SVC. Heart size normal. Lungs are clear. Left-sided pigtail cathet er is present. I do not see a pneumothorax. CONCLUSION: No obvious pneumothorax. Clear lungs. Daniele Armstrong MD on December 07, 2016 at 4:24 Board Certified Radiologist. This report was verified electronically.
[2016-12-07] MEDS: QUEtiapine FUMARATE 25 MG TAB PO SCH ×2 (06:00→14:00)
[2016-12-07] MEDS: cloNIDine HCL 0.3 MG TAB PO SCH ×2 (06:00→14:00)
[2016-12-07 06:22] LABS: AUTOMATED NEUTROPHIL # 7.4 TH/MM3 (1.8-7.7); BASOPHIL % 0.4 % (0.0-2.0); EOSINOPHIL % 0.5 % (0.0-4.0); HEMATOCRIT 29.9 % (39.0-51.0); HEMO FLAGS DIFF FINAL; LYMPH % 13.1 % (9.0-44.0); LYMPHOCYTE # 1.2 TH/MM3 (1.0-4.8); MEAN CELL VOLUME 95.9 FL (80.0-100.0); MEAN CORPUSCULAR HEMOGLOBIN 32.2 PG (27.0-34.0); MEAN CORPUSCULAR HGB CONC 33.6 % (32.0-36.0); MONO % 6.4 % (0.0-8.0); NEUT % 79.6 % (16.0-70.0); PLATELET COUNT 186 TH/MM3 (150-450); RED BLOOD COUNT 3.12 MIL/MM3 (4.50-5.90); RED CELL DISTRIBUTION WIDTH 13.5 % (11.6-17.2); WHITE BLOOD COUNT 9.4 TH/MM3 (4.0-11.0)
[2016-12-07 06:49] LABS: ANION GAP 5 MEQ/L (5-15); AST (GOT) 18 U/L (15-37); BICARBONATE 29.8 MEQ/L (21.0-32.0); BLOOD UREA NITROGEN 10 MG/DL (7-18); CHLORIDE 108 MEQ/L (98-107); GLOMERULAR FILTRATION RATE 160 ML/MIN (>89); POTASSIUM 3.8 MEQ/L (3.5-5.1); SODIUM (NA) 143 MEQ/L (136-145)
[2016-12-07 06:52] LABS: ALKALINE PHOSPHATASE 34 U/L (45-117); ALT (GPT) 16 U/L (12-78); TOTAL BILIRUBIN ADULT 0.5 MG/DL (0.2-1.0)
[2016-12-07] MEDS: NS + KCL 20 MEQ INJ 1,000 ML IV SCH ×2 (08:43→17:34)
[2016-12-07] MEDS: SODIUM CHLORIDE 0.9% FLUSH 5 ML FLUSH IVF SCH ×2 (09:00→21:00)
--- NOTE | 2016-12-07 09:18 | RADRPT ---
EXAM DATE/TIME: 12/07/2016 09:05 [facility] COMPARISON: CHEST SINGLE AP, December 07, 2016, 4:16. INDICATIONS : Atelectasis MEDICAL HISTORY : None. SURGICAL HISTORY : Craniotomy. ENCOUNTER: Initial ACUITY: 3 days PAIN SCORE: 0/10 LOCATION: Bilateral chest FINDINGS: A single view of the chest demonstrates interval removal of the left-sided [place] loop thoracostomy tub e without residual or recurrent pneumothorax. Lungs are otherwise clear. Left IJ central venous deon ter is unchanged in position. Heart size is normal. Osseous structures are intact. CONCLUSION: 1. Interval removal of left-sided thoracostomy tube without pneumothorax. Lungs remain clear. 2. Left IJ central venous catheter with the tip projecting over the central venous system is stable i n position. David Love MD on December 07, 2016 at 9:13 Board Certified Radiologist. This report was verified electronically.
--- NOTE | 2016-12-07 09:30 | HHI.NSPN ---
(Tara De La Rosa) Note Status Status: Progress Note (Tara De La Rosa) Interval History Interval History 12/05: POD 1 s/p craniotomy for evacuation of epidural hematoma, placement of ICP monitor. Currently sedated, becomes agitated off sedation. ICPs currently low. 12/06: POD 2, extubated, drowsy but opens eyes and follows some commands 12/07: POD 3, still appearing drowsy but oriented to name and place, follows simple commands (Tara De La Rosa) Labs, Micro, & Vital Signs Results Date Time Temp Pulse Resp B/P Pulse Ox O2 Delivery O2 Flow Rate FiO2 12/07/16 06:00 49 12/07/16 04:00 98.3 53 16 135/83 100 12/07/16 04:00 53 12/07/16 02:00 58 12/07/16 01:04 15 12/07/16 00:00 62 12/07/16 00:00 98.4 62 18 122/74 96 12/06/16 22:00 80 12/06/16 20:00 98.3 74 20 140/79 95 12/06/16 20:00 74 12/06/16 19:00 95 Room Air 12/06/16 18:00 65 12/06/16 16:00 67 12/06/16 16:00 98.3 54 16 121/80 97 12/06/16 14:00 54 12/06/16 12:00 97.6 54 10 118/77 97 12/06/16 12:00 57 12/06/16 11:21 98 21 12/06/16 10:00 58 12/07/16 06:59 Intake Total 3216 ml Output Total 2875 ml Balance 341 ml Constitutional Vital Signs Date Time Temp Pulse Resp B/P Pulse Ox O2 Delivery O2 Flow Rate FiO2 12/07/16 06:00 49 12/07/16 04:00 98.3 53 16 135/83 100 12/07/16 04:00 53 12/07/16 02:00 58 12/07/16 01:04 15 12/07/16 00:00 62 12/07/16 00:00 98.4 62 18 122/74 96 12/06/16 22:00 80 12/06/16 20:00 98.3 74 20 140/79 95 12/06/16 20:00 74 12/06/16 19:00 95 Room Air 12/06/16 18:00 65 12/06/16 16:00 67 12/06/16 16:00 98.3 54 16 121/80 97 12/06/16 14:00 54 12/06/16 12:00 97.6 54 10 118/77 97 12/06/16 12:00 57 12/06/16 11:21 98 21 12/06/16 10:00 58 12/07/16 06:59 Intake Total 3216 ml Output Total 2875 ml Balance 341 ml (Tara De La Rosa) Review of Systems/Exam Exam Drowsy opened eyes briefly, oriented to name and place. followed few simple commands. Surgical wound is healing well, pineda intact. Cranial nerve examination: pupils equal, round and reactive to light. Facial motor symmetric at rest. Motor: moved x 4 extremities off the bed to command Neck: soft, supple (Tara De La Rosa) Medications Current Medications Current Medications Medications (Trade) Dose Ordered Sig/Torie Route PRN Reason Start Time Stop Time Status Last Admin Dose Admin Ondansetron HCl (Zofran Inj) 4 mg Q6H PRN IV NAUSEA OR VOMITING 12/04/16 09:00 12/06/16 09:45 Miscellaneous Information 1 Q361D XX 12/04/16 09:00 12/05/16 00:44 Chlorhexidine Gluconate (Chlorhexidine 2% Cloth) 3 pack Taper DAILY@04 TOP 12/05/16 04:00 12/01/17 03:59 12/07/16 04:00 Chlorhexidine Gluconate (Chlorhexidine 2% Cloth) 3 pack UNSCH PRN [facility] 12/04/16 09:00 Magnesium Hydroxide 30 ml 30 ml Q12H PRN PO MILD - MODERATE CONSTIPATION 12/04/16 09:00 Potassium Chloride/Sodium Chloride (NS + KCl 20 Meq Inj) 1,000 ml @ 100 mls/hr Q10H IV 12/04/16 10:43 12/06/16 22:00 IV Flush (NS Flush) 2 ml UNSCH PRN IVF FLUSH AFTER USING IV ACCESS 12/04/16 10:45 IV Flush 2 ml 2 ml BID IVF 12/04/16 21:00 12/06/16 20:37 Levetriacetam/ Sodium Chloride (Keppra Inj/NS Inj) 105 ml @ 400 mls/hr Q12H IV 12/04/16 13:00 12/07/16 01:09 Bisacodyl (Dulcolax Supp) 10 mg DAILY PRN RECTAL CONSTIPATION 12/04/16 10:45 Docusate Sodium (Colace) 100 mg BID PO 12/04/16 21:00 12/06/16 20:37 Pantoprazole Sodium (Protonix) 40 mg DAILY PO 12/05/16 09:00 12/06/16 08:42 Calcium Gluconate 1 gm 1 gm UNSCH PRN IV SEE LABEL COMMENTS 12/04/16 10:45 Potassium Chloride 100 ml @ 50 mls/hr UNSCH PRN IV POTASSIUM LESS THAN 4 12/04/16 10:45 Magnesium Sulfate/ Sodium Chloride (Magnesium Sulfate Inj/NS Inj) 108 ml @ 108 mls/hr UNSCH PRN IV MAGNESIUM LESS THAN 2 12/04/16 10:45 Morphine Sulfate (Morphine Inj) 2 mg Q2H PRN IV PUSH PAIN SCALE 1 TO 6 12/04/16 10:45 Morphine Sulfate (Morphine Inj) 4 mg Q2H PRN IV PUSH PAIN SCALE 7 TO 10 12/04/16 10:45 Acetaminophen (Tylenol) 650 mg Q4H PRN PO TEMPERATURE > 101.5 F 12/04/16 10:45 Clonidine (Catapres) 0.3 mg Q8HR PO 12/05/16 15:00 12/06/16 22:00 Haloperidol Lactate (Haldol Inj) 5 mg Q4H PRN IV PUSH agitation 12/05/16 14:30 12/06/16 00:58 Oxycodone HCl 10 mg 10 mg Q4H PO 12/05/16 15:00 12/07/16 00:04 Dexmedetomidine HCl/Sodium Chloride (Precedex Inj/NS Inj) 52 ml @ 0 mls/hr TITRATE IV 12/05/16 15:15 12/05/16 17:09 Quetiapine Fumarate (SEROquel) 50 mg Q8HR PO 12/06/16 06:00 12/06/16 06:00 Nicotine (Habitrol 21 Mg Patch.24 Hr) 1 patch DAILY T-DERMAL 12/06/16 09:30 12/06/16 10:00 Miscellaneous Information 1 HS T-DERMAL 12/06/16 21:00 12/06/16 21:00 (Tara De La Rsoa) Medical Decision Making MDM Remarks 26 y/o male s/p craniotomy for evacuation of epidural hematoma, placement of ICP monitor 12/04/16, ICP monitor dc'ed 12/05 (Tara De La Rosa) Plan Plan Remarks cont supportive care, cont neuro checks in ISC cont nonchemical dvt prophylaxis protonix for stress ulcer prophylaxis cont therapy (Tara De La Rosa) Attending Statement The exam, history, and the medical decision-making described in the above note were completed with the assistance of the mid-level provider. I reviewed and agree with the findings presented. I attest that I had a [id number] encounter with the patient on the same day, and personally performed and documented my assessment and findings in the medical record. (Gagandeep Yu MD) Tara De La Rosa Dec 07, 2016 09:30 Gagandeep Yu MD Dec 08, 2016 20:02
[2016-12-07] MEDS: NICOTINE 21 MG/24 HR PATCH T-DERMAL SCH (09:41)
[2016-12-07] MEDS: PANTOPRAZOLE SOD 40 MG DELAYED RELEASE TAB PO SCH (09:41)
[2016-12-07] MEDS: DOCUSATE SODIUM 100 MG CAP PO SCH (09:41)
[2016-12-07] MEDS: ONDANSETRON HCL 4 MG/2 ML VIAL IV PRN (15:27)
--- NOTE | 2016-12-07 17:10 | HHI.CCPN ---
Subjective Brief History EDH with shift-presented with [facility] 11 OR for evacuation -POD#1 24 Hour Review/Hospital Course 12/05 -Agitated overnight sedated with propofol/fentanyl icp/cpp in good level-low dose levophed moving all 4 extremities-not purposeful yet 12/06 extubated last night [facility] 15 HD normal moving all 4 extremities 12/07 [facility] 15 HD normal tolerating diet transfer floor Objective Vital Signs Date Time Temp Pulse Resp B/P Pulse Ox O2 Delivery O2 Flow Rate FiO2 12/07/16 16:00 97.8 54 12 117/77 100 12/07/16 07:00 Room Air 12/06/16 11:21 21 12/06/16 07:22 1.50 Intake and Output 12/06/16 12/06/16 12/07/16 08:00 16:00 00:00 Intake Total 771 ml 959 ml 1451 ml Output Total 460 ml 550 ml 1800 ml Balance 311 ml 409 ml -349 ml Result Diagram: 12/07/16 0600 12/07/16 0600 Imaging Last 24 hours Impressions Chest X-Ray 12/07/16 0400 Signed Impressions: Service Date/Time: Wednesday, December 07, 2016 04:16 - CONCLUSION: No obvious pneumothorax. Clear lungs. Daniele Armstrong MD Chest X-Ray 12/07/16 0000 Signed Impressions: Service Date/Time: Wednesday, December 07, 2016 09:05 - CONCLUSION: 1. Interval removal of left-sided thoracostomy tube without pneumothorax. Lungs remain clear. 2. Left IJ central venous catheter with the tip projecting over the central venous system is stable in position. David Love MD Exam CLAY MODEL[facility] 15 Hemodynamic/Cardiac stable Pulmonary/Respiratory clear b/l Abdomen/GI Nutrition soft Urinary Catheter Assessment Urinary Catheter: No Vascular Central Line Catheter Vascular Central Line Catheter: No Assessment and Plan Plan stable postop [facility] 15 PT/OT/cognitive transfer floor 24 hrs Diamond Flood MD Dec 07, 2016 17:10
[2016-12-07] MEDS ORDERED: LACTULOSE SYRUP 20 GM/30 ML CUP PO PRN (17:30)
[2016-12-07] MEDS: ACETAMINOPHEN 1000 MG/100 ML VIAL IV PRN (18:35)
[2016-12-07] MEDS ORDERED: ENALAPRILAT 2.5 MG/2 ML VIAL IV PUSH PRN (20:00)
[2016-12-07] MEDS ORDERED: cloNIDine HCL 0.3 MG TAB PO PRN (20:00)
[2016-12-07] MEDS: REMOVE OLD NICODERM (NICOTINE) PATCH T-DERMAL SCH (21:00)
[2016-12-07] MEDS: DOCUSATE SODIUM 50 MG/SENNA 8.6 MG TAB PO SCH (21:44)
[2016-12-07] MEDS: levETIRAcetam 500 MG TAB PO SCH (21:44)
[2016-12-07] MEDS: VALPROIC ACID 250 MG CAP PO SCH (22:34)
[2016-12-08] VITALS (7 sets, daily range): BP systolic 124–146; BP diastolic 65–89; PULSE 47–86; RESP 16–19; TEMP 97–98.7; O2SAT 96–100
[2016-12-08] MEDS: ACETAMINOPHEN 1000 MG/100 ML VIAL IV PRN ×3 (01:38→21:28)
[2016-12-08] MEDS: NICOTINE 21 MG/24 HR PATCH T-DERMAL SCH (08:24)
[2016-12-08] MEDS: THIAMINE HCL 100 MG TAB PO SCH (08:24)
[2016-12-08] MEDS: DOCUSATE SODIUM 50 MG/SENNA 8.6 MG TAB PO SCH ×2 (08:25→21:27)
[2016-12-08] MEDS: levETIRAcetam 500 MG TAB PO SCH ×2 (08:25→21:27)
[2016-12-08] MEDS: FOLIC ACID 1 MG TAB PO SCH (08:25)
[2016-12-08] MEDS: MULTIVITAMINS/MINERALS THERAPEUTIC TAB PO SCH (08:25)
[2016-12-08] MEDS: PANTOPRAZOLE SOD 40 MG DELAYED RELEASE TAB PO SCH (08:26)
[2016-12-08] MEDS: SODIUM CHLORIDE 0.9% FLUSH 5 ML FLUSH IVF SCH ×2 (08:26→21:00)
[2016-12-08] MEDS: VALPROIC ACID 250 MG CAP PO SCH ×2 (08:31→21:31)
[2016-12-08 09:15] LABS: AUTOMATED NEUTROPHIL # 6.1 TH/MM3 (1.8-7.7); BASOPHIL % 0.4 % (0.0-2.0); EOSINOPHIL # 0.1 TH/MM3 (0-0.4); EOSINOPHIL % 1.3 % (0.0-4.0); HEMATOCRIT 31.8 % (39.0-51.0); HEMO FLAGS DIFF FINAL; LYMPH % 14.8 % (9.0-44.0); LYMPHOCYTE # 1.2 TH/MM3 (1.0-4.8); MEAN CELL VOLUME 96.1 FL (80.0-100.0); MEAN CORPUSCULAR HEMOGLOBIN 31.9 PG (27.0-34.0); MEAN CORPUSCULAR HGB CONC 33.2 % (32.0-36.0); MONO % 7.4 % (0.0-8.0); NEUT % 76.1 % (16.0-70.0); PLATELET COUNT 188 TH/MM3 (150-450); RED BLOOD COUNT 3.31 MIL/MM3 (4.50-5.90); RED CELL DISTRIBUTION WIDTH 13.3 % (11.6-17.2)
[2016-12-08 10:01] LABS: ALT (GPT) 28 U/L (12-78); ANION GAP 7 MEQ/L (5-15); AST (GOT) 20 U/L (15-37); BICARBONATE 29.7 MEQ/L (21.0-32.0); BLOOD UREA NITROGEN 5 MG/DL (7-18); CHLORIDE 106 MEQ/L (98-107); GLOMERULAR FILTRATION RATE 148 ML/MIN (>89); POTASSIUM 3.7 MEQ/L (3.5-5.1); SODIUM (NA) 143 MEQ/L (136-145)
[2016-12-08 10:04] LABS: ALKALINE PHOSPHATASE 39 U/L (45-117); TOTAL BILIRUBIN ADULT 0.4 MG/DL (0.2-1.0)
--- NOTE | 2016-12-08 10:36 | HHI.NSPN ---
(Tara De La Rosa) Note Status Status: Progress Note (Tara De La Rosa) Interval History Interval History 12/05: POD 1 s/p craniotomy for evacuation of epidural hematoma, placement of ICP monitor. Currently sedated, becomes agitated off sedation. ICPs currently low. 12/06: POD 2, extubated, drowsy but opens eyes and follows some commands 12/07: POD 3, still appearing drowsy but oriented to name and place, follows simple commands 12/08: POD 4, out of ICU, mother in room reports he is doing very well. more awake today, ambulated to the bathroom was a bit unsteady (Tara De La Rosa) Labs, Micro, & Vital Signs Results Date Time Temp Pulse Resp B/P Pulse Ox O2 Delivery O2 Flow Rate FiO2 12/08/16 09:25 99 21 12/08/16 08:00 97.8 51 17 146/84 99 12/08/16 04:00 97.7 47 19 128/86 99 12/08/16 00:00 97.7 52 18 138/89 99 12/07/16 20:00 98.0 53 20 142/94 99 12/07/16 17:20 97.5 57 18 153/95 98 12/07/16 16:00 97.8 54 12 117/77 100 12/07/16 16:00 54 12/07/16 12:00 97.9 58 17 122/73 99 12/07/16 12:00 58 12/07/16 11:11 15 12/08/16 07:00 Intake Total 1407 ml Output Total 2025 ml Balance -618 ml Constitutional Vital Signs Date Time Temp Pulse Resp B/P Pulse Ox O2 Delivery O2 Flow Rate FiO2 12/08/16 09:25 99 21 12/08/16 08:00 97.8 51 17 146/84 99 12/08/16 04:00 97.7 47 19 128/86 99 12/08/16 00:00 97.7 52 18 138/89 99 12/07/16 20:00 98.0 53 20 142/94 99 12/07/16 17:20 97.5 57 18 153/95 98 12/07/16 16:00 97.8 54 12 117/77 100 12/07/16 16:00 54 12/07/16 12:00 97.9 58 17 122/73 99 12/07/16 12:00 58 12/07/16 11:11 15 12/08/16 07:00 Intake Total 1407 ml Output Total 2025 ml Balance -618 ml (Tara De La Rosa) Review of Systems/Exam Exam More awake and alert today. Oriented x 3. Speech is appropriate. follows commands without apraxia surgical wound is healing well, pineda intact. Cranial nerve examination: pupils 4 mm equal. Facial motor symmetric. Motor: moves all four extremities with good strength Neck: soft, supple (Tara De La Rosa) Medications Current Medications Current Medications Medications (Trade) Dose Ordered Sig/Torie Route PRN Reason Start Time Stop Time Status Last Admin Dose Admin Ondansetron HCl (Zofran Inj) 4 mg Q6H PRN IV NAUSEA OR VOMITING 12/04/16 09:00 12/07/16 15:27 Magnesium Hydroxide 30 ml 30 ml Q12H PRN PO MILD - MODERATE CONSTIPATION 12/04/16 09:00 Potassium Chloride/Sodium Chloride (NS + KCl 20 Meq Inj) 1,000 ml @ 50 mls/hr Q20H IV 12/04/16 10:43 12/07/16 08:43 IV Flush (NS Flush) 2 ml UNSCH PRN IVF FLUSH AFTER USING IV ACCESS 12/04/16 10:45 IV Flush (NS Flush) 2 ml BID IVF 12/04/16 21:00 12/08/16 08:26 Bisacodyl (Dulcolax Supp) 10 mg DAILY PRN RECTAL CONSTIPATION 12/04/16 10:45 Pantoprazole Sodium (Protonix) 40 mg DAILY PO 12/05/16 09:00 12/08/16 08:26 Calcium Gluconate (Calcium Gluconate Inj) 1 gm UNSCH PRN IV SEE LABEL COMMENTS 12/04/16 10:45 Morphine Sulfate (Morphine Inj) 2 mg Q2H PRN IV PUSH PAIN SCALE 1 TO 6 12/04/16 10:45 Morphine Sulfate (Morphine Inj) 4 mg Q2H PRN IV PUSH PAIN SCALE 7 TO 10 12/04/16 10:45 Acetaminophen (Tylenol) 650 mg Q4H PRN PO TEMPERATURE > 101.5 F 12/04/16 10:45 Haloperidol Lactate (Haldol Inj) 5 mg Q4H PRN IV PUSH agitation 12/05/16 14:30 12/06/16 00:58 Nicotine (Habitrol 21 Mg Patch.24 Hr) 1 patch DAILY T-DERMAL 12/06/16 09:30 12/08/16 08:24 Miscellaneous Information 1 HS T-DERMAL 12/06/16 21:00 12/07/16 21:00 Valproic Acid (Depakene) 250 mg Q12HR PO 12/07/16 21:00 12/08/16 08:31 Senna/Docusate Sodium (Jane-Colace) 1 tab BID PO 12/07/16 21:00 12/08/16 08:25 Lactulose (Lactulose Liq) 30 ml DAILY PRN PO No BM in 2 days 12/07/16 17:30 Acetaminophen (Ofirmev Inj) 1,000 mg Q6H PRN IV HEADACHE 12/07/16 18:00 12/08/16 09:59 Clonidine (Catapres) 0.1 mg Q8HR PRN PO SBP>180, DBP>95 12/07/16 20:00 Levetriacetam (Keppra) 500 mg Q12HR PO 12/07/16 21:00 12/08/16 08:25 Folic Acid (Folate) 1 mg DAILY PO 12/08/16 09:00 12/13/16 08:59 12/08/16 08:25 Thiamine HCl (Vitamin B1) 100 mg DAILY PO 12/08/16 09:00 12/08/16 08:24 Multivitamins/ Minerals Therapeutic (Theragran M Tab) 1 tab DAILY PO 12/08/16 09:00 12/13/16 08:59 12/08/16 08:25 Enalaprilat (Vasotec Inj) 2.5 mg Q6H PRN IV PUSH SBP>160, DBP>90 12/07/16 20:00 (Tara De La Rosa) Medical Decision Making MDM Remarks 26 y/o male s/p craniotomy for evacuation of epidural hematoma, placement of ICP monitor 12/04/16, ICP monitor dc'ed 12/05 (Tara De La Rosa) Plan Plan Remarks cont supportive care, cont PT, encourage mobilization OOB with assistance, ok to dc home tomorrow pineda to be removed 12/18/16, follow up in the office discussed with mom in room, questions answered (Tara De La Rosa) Attending Statement The exam, history, and the medical decision-making described in the above note were completed with the assistance of the mid-level provider. I reviewed and agree with the findings presented. I attest that I had a [id number] encounter with the patient on the same day, and personally performed and documented my assessment and findings in the medical record. (Gagandeep Yu MD) Tara De La Rosa Dec 08, 2016 10:36 Gagandeep Yu MD Dec 08, 2016 20:12
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
[2016-12-08] MEDS: REMOVE OLD NICODERM (NICOTINE) PATCH T-DERMAL SCH (21:00)
[2016-12-08] MEDS: HALOPERIDOL LACTATE 5 MG/ML AMP IV PUSH PRN (22:48)
[2016-12-09 00:30] VITALS: BP 101/61; PULSE 68; RESP 17; TEMP 98.6; O2SAT 100
[2016-12-09 05:00] VITALS: BP 116/56; PULSE 54; RESP 17; TEMP 98.2; O2SAT 100
[2016-12-09] MEDS: ACETAMINOPHEN 1000 MG/100 ML VIAL IV PRN (05:22)
[2016-12-09 08:49] VITALS: BP 141/71; PULSE 50; RESP 16; TEMP 97.9; O2SAT 100
[2016-12-09] MEDS: SODIUM CHLORIDE 0.9% FLUSH 5 ML FLUSH IVF SCH (09:00)
[2016-12-09] MEDS: NICOTINE 21 MG/24 HR PATCH T-DERMAL SCH (09:49)
[2016-12-09] MEDS: PANTOPRAZOLE SOD 40 MG DELAYED RELEASE TAB PO SCH (09:49)
[2016-12-09] MEDS: VALPROIC ACID 250 MG CAP PO SCH (09:49)
[2016-12-09] MEDS: levETIRAcetam 500 MG TAB PO SCH (09:49)
[2016-12-09] MEDS: FOLIC ACID 1 MG TAB PO SCH (09:49)
[2016-12-09] MEDS: DOCUSATE SODIUM 50 MG/SENNA 8.6 MG TAB PO SCH (09:49)
[2016-12-09] MEDS: THIAMINE HCL 100 MG TAB PO SCH (09:50)
[2016-12-09] MEDS: MULTIVITAMINS/MINERALS THERAPEUTIC TAB PO SCH (09:50)
[2016-12-09 10:47] LABS: AUTOMATED NEUTROPHIL # 5.9 TH/MM3 (1.8-7.7); BASOPHIL # 0.1 TH/MM3 (0-0.2); BASOPHIL % 0.7 % (0.0-2.0); EOSINOPHIL # 0.3 TH/MM3 (0-0.4); EOSINOPHIL % 2.9 % (0.0-4.0); HEMO FLAGS DIFF FINAL; LYMPH % 19.6 % (9.0-44.0); LYMPHOCYTE # 1.7 TH/MM3 (1.0-4.8); MEAN CELL VOLUME 94.4 FL (80.0-100.0); MEAN CORPUSCULAR HEMOGLOBIN 32.3 PG (27.0-34.0); MEAN CORPUSCULAR HGB CONC 34.2 % (32.0-36.0); MONO % 7.8 % (0.0-8.0); PLATELET COUNT 234 TH/MM3 (150-450); RED CELL DISTRIBUTION WIDTH 13.4 % (11.6-17.2); WHITE BLOOD COUNT 8.6 TH/MM3 (4.0-11.0)
[2016-12-09 11:17] LABS: ANION GAP 6 MEQ/L (5-15); AST (GOT) 27 U/L (15-37); BICARBONATE 29.6 MEQ/L (21.0-32.0); BLOOD UREA NITROGEN 7 MG/DL (7-18); CHLORIDE 103 MEQ/L (98-107); GLOMERULAR FILTRATION RATE 146 ML/MIN (>89); POTASSIUM 3.3 MEQ/L (3.5-5.1); SODIUM (NA) 139 MEQ/L (136-145)
[2016-12-09 11:19] LABS: ALT (GPT) 52 U/L (12-78)
[2016-12-09 11:21] LABS: ALKALINE PHOSPHATASE 46 U/L (45-117); TOTAL BILIRUBIN ADULT 0.4 MG/DL (0.2-1.0)
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
[2016-12-09 12:47] VITALS: BP 141/71; PULSE 50; RESP 16; TEMP 97.9; O2SAT 100
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
== END 2016-12-09 12:56 | disposition home or self-care (01) | DRG 25 ==
LOC: NEPE 06:09 → NEDA 08:43 → N03A 11:57 → N05A 12-07 16:42
PROVIDERS: ADMIT Surgery Trauma Surgery; ATTEND Surgery Trauma Surgery
PROC: 4A103BD Monitoring of Intracranial Pressure, Percutaneous Approach (ICD-10-PCS; 2016-12-04)
PROC: 02HV33Z Insertion of Infusion Device into Superior Vena Cava, Percutaneous Approach (ICD-10-PCS; 2016-12-04)
PROC: B544ZZA Ultrasonography of Left Jugular Veins, Guidance (ICD-10-PCS; 2016-12-04)
PROC: 0W9B30Z Drainage of Left Pleural Cavity with Drainage Device, Percutaneous Approach (ICD-10-PCS; 2016-12-04)
PROC: 00C30ZZ Extirpation of Matter from Intracranial Epidural Space, Open Approach (ICD-10-PCS; principal; 2016-12-04 08:47)
PROC: 00H032Z Insertion of Monitoring Device into Brain, Percutaneous Approach (ICD-10-PCS; 2016-12-04 08:47)
DX: S06.4X0A Epidural hemorrhage without loss of consciousness, initial encounter (principal); J96.00 Acute respiratory failure, unspecified whether with hypoxia or hypercapnia; G93.40 Encephalopathy, unspecified; G93.6 Cerebral edema; G93.89 Other specified disorders of brain; I95.9 Hypotension, unspecified; F15.20 Other stimulant dependence, uncomplicated; J95.811 Postprocedural pneumothorax; S02.19XA Other fracture of base of skull, initial encounter for closed fracture; R40.2423 Glasgow coma scale score 9-12, at hospital admission; R00.0 Tachycardia, unspecified; H91.90 Unspecified hearing loss, unspecified ear; D72.829 Elevated white blood cell count, unspecified; F10.10 Alcohol abuse, uncomplicated; F10.129 Alcohol abuse with intoxication, unspecified; F17.200 Nicotine dependence, unspecified, uncomplicated; Y04.0XXA Assault by unarmed brawl or fight, initial encounter; Y83.8 Other surgical procedures as the cause of abnormal reaction of the patient, or of later complication, without mention of misadventure at the time of the procedure; Y90.0 Blood alcohol level of less than 20 mg/100 ml; Y92.239 Unspecified place in hospital as the place of occurrence of the external cause
CPT/HCPCS: 36556; 70450; 71010; 71250; 72125; 80048; 80053; 80307; 82805; 83930; 84295; 85025; 87040; 87641; 88304; 94002; 94003; 94150; 96360; C1713; C9113; J0131; J0690; J1580; J1630; J1940; J1953; J2150; J2250; J2270; J2370; J2405; J2543; J3010; J3370; J3480; J7030; J7040; J7050; J7120

== ENCOUNTER 2016-12-12 16:22 | Inpatient (IN) | payer OTHER ==
[~2016-12-12] VITALS: Ht 180.3 cm; Wt 69.3 kg
[2016-12-12 16:28] VITALS: BP 132/73; PULSE 100; RESP 18; O2SAT 100
[2016-12-12] MEDS ORDERED: ONDANSETRON HCL 4 MG/2 ML VIAL ONE (16:31)
[2016-12-12 16:34] VITALS: BP 132/73; PULSE 72; RESP 18; TEMP 97.8; O2SAT 100
[2016-12-12] MEDS ORDERED: PROCHLORPERAZINE INJ 10 MG/2 ML VIAL IV PUSH ONE (16:45)
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
[2016-12-12 17:12] LABS: AUTOMATED NEUTROPHIL # 11.6 TH/MM3 (1.8-7.7); BASOPHIL % 0.3 % (0.0-2.0); EOSINOPHIL % 0.4 % (0.0-4.0); HEMATOCRIT 34.3 % (39.0-51.0); HEMO FLAGS DIFF FINAL; LYMPH % 6.4 % (9.0-44.0); LYMPHOCYTE # 0.8 TH/MM3 (1.0-4.8); MEAN CORPUSCULAR HEMOGLOBIN 32.3 PG (27.0-34.0); MEAN CORPUSCULAR HGB CONC 33.7 % (32.0-36.0); MONO % 5.3 % (0.0-8.0); NEUT % 87.6 % (16.0-70.0); PLATELET COUNT 278 TH/MM3 (150-450); RED BLOOD COUNT 3.57 MIL/MM3 (4.50-5.90); RED CELL DISTRIBUTION WIDTH 14.1 % (11.6-17.2); WHITE BLOOD COUNT 13.2 TH/MM3 (4.0-11.0)
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
[2016-12-12] MEDS ORDERED: NALOXONE HCL 0.4 MG/ML AMP IV PRN (17:30)
[2016-12-12] MEDS ORDERED: ACETAMINOPHEN/HYDROcodone 325 MG/7.5 MG TAB PO PRN (17:30)
[2016-12-12] MEDS ORDERED: ACETAMINOPHEN/HYDROcodone 325 MG/5 MG TAB PO PRN (17:30)
--- NOTE | 2016-12-12 17:31 | RADRPT ---
EXAM DATE/TIME: 12/12/2016 17:03 [facility] COMPARISON: CT BRAIN W/O CONTRAST, December 04, 2016, 7:23. CT BRAIN W/O CONTRAST, December 04, 2016, 11:42. INDICATIONS : Cephalgia. Vomiting. Evaluate for hemorrhage. RADIATION DOSE: 35.46 CTDIvol (mGy) MEDICAL HISTORY : None SURGICAL HISTORY : Craniotomy. ENCOUNTER: Initial ACUITY: 3 days PAIN SCALE: 7/10 LOCATION: Bilateral cranial TECHNIQUE: Multiple contiguous axial images were obtained of the head. Using automated exposure control and adj ustment of the mA and/or kV according to patient size, radiation dose was kept as low as reasonably a chievable to obtain optimal diagnostic quality images. DICOM format image data is available electro nically for review and comparison. FINDINGS: CEREBRUM: There is no evidence of acute hemorrhage. Hypodensity in the right temporal lobe indicates presence o f edema. There is no shift of midline structures. Basilar cisterns remain well delineated. Left-sided epidural hematoma has been completely evacuated without evidence of recurrent hemorrhage. Overlying craniotomy defect is noted. POSTERIOR FOSSA: The cerebellum and brainstem are intact. The 4th ventricle is midline. The cerebellopontine angle i s unremarkable. EXTRACRANIAL: The visualized portion of the orbits is intact. SKULL: The calvaria is intact. No evidence of skull fracture. CONCLUSION: 1. Right temporal lobe hypodensity characteristic of edema. 2. No evidence of acute hemorrhage. 3. No significant mass effect 4. Stable postsurgical changes following evacuation of a left-sided epidural hematoma. Channing Edward MD on December 12, 2016 at 17:26 Board Certified Radiologist. This report was verified electronically.
[2016-12-12 17:40] LABS: BICARBONATE 29.3 MEQ/L (21.0-32.0); POTASSIUM 4.7 MEQ/L (3.5-5.1)
[2016-12-12] MEDS: NS + KCL 20 MEQ INJ 1,000 ML IV SCH (18:00)
--- NOTE | 2016-12-12 18:03 | RADRPT ---
EXAM DATE/TIME: 12/12/2016 17:37 [facility] COMPARISON: CHEST SINGLE AP, December 07, 2016, 9:05. INDICATIONS : Shortness of breath. Nausea. Headaches. MEDICAL HISTORY : None. SURGICAL HISTORY : None. ENCOUNTER: Initial ACUITY: 1 day PAIN SCORE: 0/10 LOCATION: Bilateral chest collapsed lung on left side. FINDINGS: Single AP view of the chest. The lungs are clear. Cardiomediastinal silhouette within normal limits. No evidence of pleural effusion or pneumothorax. CONCLUSION: No acute cardiopulmonary disease identified. Stiven Aguirre MD on December 12, 2016 at 18:01 Board Certified Radiologist. This report was verified electronically.
[2016-12-12 18:34] VITALS: BP 116/71; PULSE 57; RESP 20; O2SAT 100
[2016-12-12 19:35] VITALS: BP 127/87; PULSE 57; RESP 16; TEMP 96.1; O2SAT 99
[2016-12-12] MEDS: ONDANSETRON HCL 4 MG/2 ML VIAL IV PRN (22:05)
[2016-12-12 23:50] VITALS: BP 118/76; PULSE 79; RESP 16; TEMP 97.2; O2SAT 97
[2016-12-13 04:00] VITALS: BP 131/69; PULSE 63; RESP 17; TEMP 97.7; O2SAT 98
[2016-12-13 05:21] LABS: AUTOMATED NEUTROPHIL # 11.1 TH/MM3 (1.8-7.7); BASOPHIL % 0.1 % (0.0-2.0); EOSINOPHIL # 0.1 TH/MM3 (0-0.4); EOSINOPHIL % 0.5 % (0.0-4.0); HEMATOCRIT 34.6 % (39.0-51.0); HEMO FLAGS DIFF FINAL; LYMPH % 8.2 % (9.0-44.0); LYMPHOCYTE # 1.1 TH/MM3 (1.0-4.8); MEAN CELL VOLUME 95.5 FL (80.0-100.0); MEAN CORPUSCULAR HEMOGLOBIN 31.5 PG (27.0-34.0); MONO % 6.6 % (0.0-8.0); NEUT % 84.6 % (16.0-70.0); PLATELET COUNT 288 TH/MM3 (150-450); RED BLOOD COUNT 3.63 MIL/MM3 (4.50-5.90); RED CELL DISTRIBUTION WIDTH 14.4 % (11.6-17.2); WHITE BLOOD COUNT 13.1 TH/MM3 (4.0-11.0)
[2016-12-13 05:32] LABS: APTT (PATIENT) 27.1 SEC (24.3-30.1); PROTHROMBIN TIME - PATIENT 10.5 SEC (9.8-11.6)
[2016-12-13] MEDS: MORPHINE SULFATE 4 MG/ML INJ IV PRN ×2 (06:38→16:12)
[2016-12-13] MEDS: NS + KCL 20 MEQ INJ 1,000 ML IV SCH ×2 (06:39→17:50)
[2016-12-13 06:47] VITALS: O2SAT 98
[2016-12-13 08:00] VITALS: BP 109/72; PULSE 55; RESP 16; TEMP 96.5; O2SAT 100
[2016-12-13] MEDS: PANTOPRAZOLE SOD 40 MG DELAYED RELEASE TAB PO SCH (09:08)
[2016-12-13] MEDS: PROMETHAZINE INJ 25 MG/ML VIAL IM PRN ×2 (09:08→16:13)
[2016-12-13] MEDS: ONDANSETRON HCL 4 MG/2 ML VIAL IV PRN (09:12)
[2016-12-13 12:00] VITALS: BP 120/62; PULSE 67; RESP 16; TEMP 97.1; O2SAT 100
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
[2016-12-13 13:02] LABS: BICARBONATE 31.2 MEQ/L (21.0-32.0); POTASSIUM 4.5 MEQ/L (3.5-5.1)
[2016-12-13 16:00] VITALS: BP 117/77; PULSE 65; RESP 16; TEMP 98.1; O2SAT 95
[2016-12-13 19:00] VITALS: BP 131/84; PULSE 70; RESP 17; TEMP 97.5; O2SAT 100
[2016-12-14] VITALS: PULSE 74; TEMP 98.1
[2016-12-14] MEDS: MORPHINE SULFATE 4 MG/ML INJ IV PRN ×2 (04:19→09:01)
[2016-12-14] MEDS: NS + KCL 20 MEQ INJ 1,000 ML IV SCH (05:05)
[2016-12-14 07:46] LABS: BICARBONATE 28.9 MEQ/L (21.0-32.0); POTASSIUM 3.9 MEQ/L (3.5-5.1)
[2016-12-14 08:00] VITALS: BP 116/65; PULSE 61; RESP 18; TEMP 96.3; O2SAT 100
[2016-12-14] MEDS: PANTOPRAZOLE SOD 40 MG DELAYED RELEASE TAB PO SCH (09:01)
--- NOTE | 2016-12-14 09:40 | RADRPT ---
EXAM DATE/TIME: 12/14/2016 09:08 [facility] COMPARISON: CT BRAIN W/O CONTRAST, December 12, 2016, 17:03. INDICATIONS : Follow up bleed. Increased headaches. RADIATION DOSE: 56.39 CTDIvol (mGy) MEDICAL HISTORY : Brain bleed. SURGICAL HISTORY : Craniotomy. ENCOUNTER: Subsequent ACUITY: 1 week PAIN SCALE: 5/10 LOCATION: cranial TECHNIQUE: Multiple contiguous axial images were obtained of the head. Using automated exposure control and adj ustment of the mA and/or kV according to patient size, radiation dose was kept as low as reasonably a chievable to obtain optimal diagnostic quality images. DICOM format image data is available electro nically for review and comparison. FINDINGS: The examination demonstrates interval evacuation of the patient's extra-axial hemorrhage on the left. There is only a minimal amount of hemorrhage seen along the posterior left parietal cortex. This vel sures 4 mm in thickness. The ventricles are normal in size and configuration. No significant midline shift is identified. No n ew areas of hemorrhage are present. The appearance of the posterior fossa is unremarkable. Bone windowed imaging is provided. These demonstrate the patient's left-sided craniotomy. There is mu coperiosteal sinus disease in the right maxillary sinus. CONCLUSION: 1. The examination is stable compared to previous. There's been interval removal of the patient's lef t extra-axial hemorrhage. There is very minimal hemorrhage along the craniotomy site. There is no sig nificant mass effect. Torrey Barrios MD on December 14, 2016 at 9:37 Board Certified Radiologist. This report was verified electronically.
--- NOTE | 2016-12-14 10:25 | HHI.NSPN ---
([facility] De La Rosa) Note Status Status: Progress Note (Tara De La Rosa) Interval History Interval History Patient returns following previous craniotomy for left epidural hematoma. He was doing relatively well for a few days following his previous discharge, then developed progressive headache and nausea and vomiting. Follow-up CT scan a tall 17 reveals resolving bilateral frontotemporal contusions, no significant mass effect. 12/14: feeling much better today, headaches improved, no further nausea or vomiting. ambulating around the room without difficulties. requesting to go home. (Tara De La Rosa) Labs, Micro, & Vital Signs Results Date Time Temp Pulse Resp B/P Pulse Ox O2 Delivery O2 Flow Rate FiO2 12/14/16 08:00 96.3 61 18 116/65 100 12/14/16 04:23 18 12/14/16 03:46 Room Air 12/14/16 00:00 98.1 74 12/13/16 19:00 97.5 70 17 131/84 100 12/13/16 16:00 98.1 65 16 117/77 95 12/13/16 12:00 97.1 67 16 120/62 100 12/14/16 07:00 Intake Total 960 ml Balance 960 ml Constitutional Vital Signs Date Time Temp Pulse Resp B/P Pulse Ox O2 Delivery O2 Flow Rate FiO2 12/14/16 08:00 96.3 61 18 116/65 100 12/14/16 04:23 18 12/14/16 03:46 Room Air 12/14/16 00:00 98.1 74 12/13/16 19:00 97.5 70 17 131/84 100 12/13/16 16:00 98.1 65 16 117/77 95 12/13/16 12:00 97.1 67 16 120/62 100 12/14/16 07:00 Intake Total 960 ml Balance 960 ml (Tara De La Rosa) Review of Systems/Exam Exam Alert, awake, oriented x 3. Speech is fluent. Ambulating around the room unassisted without difficulties Surgical wound is healing well without signs of infection, pineda intact CN: pupils equal, facial motor symmetric Motor: moves all four extremities well Respirations clear, nonlabored (Tara De La Rosa) Medications Current Medications Current Medications Medications (Trade) Dose Ordered Sig/Torie Route PRN Reason Start Time Stop Time Status Last Admin Dose Admin Morphine Sulfate (Morphine Inj) 4 mg Q3H PRN IV BREAKTHROUGH PAIN 12/12/16 17:30 12/14/16 09:01 Naloxone HCl (Narcan Inj) 0.4 mg UNSCH PRN IV SEE LABEL COMMENTS 12/12/16 17:30 Pantoprazole Sodium (Protonix) 40 mg DAILY PO 12/13/16 09:00 12/14/16 09:01 Ondansetron HCl (Zofran Inj) 4 mg Q6H PRN IV NAUSEA OR VOMITING 12/12/16 17:30 12/13/16 09:12 Promethazine HCl 25 mg 25 mg Q4H PRN IM NAUSEA OR VOMITING 12/12/16 17:30 12/13/16 16:13 Potassium Chloride/Sodium Chloride (NS + KCl 20 Meq Inj) 1,000 ml @ 84 mls/hr [id number] IV 12/12/16 18:00 12/13/16 17:50 (Tara De La Rosa) Medical Decision Making MDM Remarks 26 y/o male recent craniotomy for left epidural hematoma 12/04/16 presented for progressive headache and nausea and vomiting f/u CT Head x 2 stable with minimal hemorrhage which is stable without significant mass effect or no midline shift clinically improved, doing well, ambulating (Tara De La Rosa) Plan Plan Remarks clinically improved, Dr. Yu cleared for discharge home activity restrictions and s/s to watch for were discussed remove scalp pineda today f/u PCP in 1 week, will follow up also outpatient (Tara De La Rosa) Attending Statement The exam, history, and the medical decision-making described in the above note were completed with the assistance of the mid-level provider. I reviewed and agree with the findings presented. I attest that I had a [id number] encounter with the patient on the same day, and personally performed and documented my assessment and findings in the medical record. (Gagandeep Yu MD) Tara De La Rosa Dec 14, 2016 10:25 Gagandeep Yu MD Dec 16, 2016 19:10
[2016-12-14 10:27] VITALS: O2SAT 98
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
== END 2016-12-14 12:37 | disposition home or self-care (01) | DRG 103 ==
LOC: NEPC 16:22 → NEDA 17:38 → N06B 19:34
PROVIDERS: ADMIT Neurological Surgery; ATTEND Neurological Surgery
DX: F07.81 Postconcussional syndrome (principal); F17.210 Nicotine dependence, cigarettes, uncomplicated; G44.319 Acute post-traumatic headache, not intractable; R11.2 Nausea with vomiting, unspecified; Z87.820 Personal history of traumatic brain injury; S00.93XD Contusion of unspecified part of head, subsequent encounter
CPT/HCPCS: 70450; 71010; 80048; 83930; 85025; 85610; 85730; 94150; 96374; J0780; J2270; J2405; J2550; J3480